=== PATIENT | female | born 1985 | race African-American/Black ===

== ENCOUNTER 2017-05-27 17:58 | Emergency (ER) ==
[2017-05-27 19:02] LABS: Hemoglobin 7.5 g/dL (12.0-16.0); Mean Corpuscular HGB CONC 35.9 g/dL (32.0-36.0); Mean Corpuscular Hemoglobin 31.6 pg (27.0-31.0); Mean Corpuscular Volume 87.9 fl (81.0-99.0); Mean Platelet Volume 8.8 fL (7.4-10.4); Platelet Count 237 thou/uL (130-400); RBC Distribution Width 22.6 % (11.5-14.5); Red Blood Cell (RBC) Count 2.36 mill/uL (4.20-5.40); White Blood Cell (WBC) Count 14.3 thou/uL (4.8-10.8)
[2017-05-27 19:18] LABS: ALT (SGPT) 30 U/L (8-55); AST (SGOT) 91 U/L (5-34); Albumin 3.5 g/dL (3.5-5.0); Alkaline Phosphatase 94 U/L (40-150); Anion Gap 10 mmol/L (10-20); BUN (Urea Nitrogen) 8 mg/dL (7.0-18.7); Calc. Creatinine Clearance 0 mL/min (70-130); Calcium 8.6 mg/dL (7.8-10.44); Carbon Dioxide 25 mmol/L (22-29); Chloride 109 mmol/L (98-107); Estimated GFR-MDRD Greater than 90; Globulin 2.8 g/dL (2.4-3.5); Glucose 100 mg/dL (70-105); Potassium 3.1 mmol/L (3.5-5.1); Protein, Total 6.3 g/dL (6.0-8.3); Sodium 141 mmol/L (136-145)
[2017-05-27 19:26] LABS: Anisocytosis SLIGHT = 6-15 cells (100X) (0-5/hpf); Lymphocytes 35 % (21-51); MDiff Complete? YES; Monocytes 3 % (0-10); Neutrophil 62 % (42-75); Nucleated RBC 8 % (0); PLT Morphology Comment Appears Adequate; Polychromasia SLIGHT = 2-3 cells (100X) (0-2/hpf); Sickle Cells SLIGHT = 1-5 cells (100X) (None Seen)
--- NOTE | 2017-05-27 20:20 | RAD ---
PA AND LATERAL CHEST X-RAY 05/27/17 HISTORY: Chest pain. History of sickle cell disease. FINDINGS: A right internal jugular vein Mediport catheter is noted in place. The cardiac silhouette is enlarged . There are interstitial densities at the right lung base with patchy parenchymal changes in the patricio on of the left lower lobe and lingula which may be related to pneumonia. Pulmonary vasculature is wit hin normal limits. Osseous structures appear intact. IMPRESSION: 1. Interstitial densities at the right lung base with patchy and parenchymal changes in the patricio on of the lingula and left middle lobe which may be related to infectious process/pneumonia. Follow u p to resolution is recommended. 2. Cardiomegaly. POS: [facility]
== END 2017-05-27 19:22 | disposition left against medical advice (07) ==
LOC: ERS 17:58
DX: D57.00 Hb-SS disease with crisis, unspecified (principal); F31.9 Bipolar disorder, unspecified; Z79.899 Other long term (current) drug therapy
CPT/HCPCS: 71046; 80053; 85025; 85046

== ENCOUNTER 2017-05-28 03:58 | Inpatient (IN) | payer MEDICARE, MEDICAID ==
[2017-05-28] MEDS ORDERED: HYDROMORPHONE SLOW IVP SCH (05:15)
[2017-05-28] MEDS ORDERED: SODIUM CHLORIDE 0.9% SLOW IVP SCH (05:15)
[2017-05-28 05:35] LABS: Acetaminophen Less than 6.0 mcg/mL (10.0-30.0); Alcohol Less than 10 mg/dL (Less than 10); CK (CPK) 41 U/L (29-168); Salicylate Less than 8.0 mg/dL (15.0-30.0)
[2017-05-28 05:40] LABS: BHCG - Serum Negative (NEGATIVE); CKMB 0.5 ng/mL (0-6.6); Pregs Control Background? CLEAR/WHITE (CLR/WHITE); Pregs Control Bar Appear? YES (CONTROL BAR); Troponin I 0.061 ng/mL (< 0.028)
[2017-05-28] MEDS ORDERED: Clopidogrel Bisulfate 75 MG TAB ONE (06:18)
[2017-05-28] MEDS ORDERED: Guaifenesin DM 100-10/5 ML UDCUP PO PRN (06:19)
[2017-05-28] MEDS ORDERED: HYDROcodone/Acetaminophen 7.5/325 mg Tablet PO PRN (06:19)
[2017-05-28] MEDS ORDERED: Ondansetron HCl/PF 4 MG/2 ML Vial IVP PRN (06:19)
[2017-05-28] MEDS ORDERED: HYDROcodone/Acetaminophen 10/325 mg Tablet PO PRN (06:19)
[2017-05-28 06:39] LABS: Bilirubin Small (Negative); Blood, Urine Large (Negative); Clarity CLOUDY (Clear); Glucose, Urine (Dipstick) Negative (Negative); Leukocyte Negative (Negative); Nitrite Negative (Negative); Protein, Urine (Dipstick) 300 mg/dL (Neg-Trace); Specific Gravity, Urine 1.013 (1.002-1.036); pH, Urine 6.5 (5.0-9.0)
[2017-05-28 06:42] LABS: Bacteria/HPF 1+ HPF (None Seen); Hyaline Casts/LPF 0-3 HYALINE CAST LPF (0-3 Hyaline)
[2017-05-28 06:48] LABS: Yeast-AUWi Flag 28.4 (0-25.0)
[2017-05-28 06:53] LABS: Amphetamine Not Detected (NotDetected); Barbiturates Screen Not Detected (NotDetected); Benzodiazepine Screen Not Detected (NotDetected); Cocaine Metabolite Screen Not Detected (NotDetected); Medtox Control Line Valid? VALID (VALID); Medtox Reader # READER 4; Methadone Not Detected (NotDetected); Methamphetamine Not Detected (NotDetected); Opiate Screen Not Detected (NotDetected); Oxycodone Screen Not Detected (NotDetected); Phencyclidine (PCP) Not Detected (NotDetected); THC/Cannabinoid Screen Not Detected (NotDetected); Tricyclic Screen Not Detected (NotDetected)
[2017-05-28 07:05] LABS: RBC/HPF 0-3 HPF (0-3); Renal Epithelial 0-3 HPF (0-3); Transitional Epithelial 0-3 HPF (0-3); Yeast-All Forms None Seen HPF (None Seen)
--- NOTE | 2017-05-28 08:31 | HP ---
REASON FOR ADMISSION: Sickle cell crisis, likely chest syndrome. HISTORY OF PRESENT ILLNESS: Patient gives history of having retrosternal chest pain and all her joints aching. This started yesterday afternoon and has been progressively getting worse. The patient has known history of sickle cell anemia and her last crisis was 2 months back when she got hospitalized in [place]. She lives in [place]. She has some dry cough, but no expectoration. No complaints of fever, urinary urgency or frequency. The patient normally takes [place] at home and folic acid. PAST MEDICAL AND SURGICAL HISTORY: History of sickle cell anemia, stroke with left hemiparesis once at 9 years of age and another stroke at 17 years of age. Patient has left upper extremity flexion contractures but is able to move. She can mobilize her left lower extremity, cholecystectomy, has a Port-A-Cath. CURRENT MEDICATIONS: Folic acid 1 mg daily and [place] p.r.n. for pain. ALLERGIES: The patient is allergic to DEMEROL, FENTANYL, MORPHINE, KETOROLAC, TORADOL, and TRAMADOL. PERSONAL HISTORY: Does not abuse alcohol or drugs. No history of smoking. She lives with her father. FAMILY HISTORY: She has 2 children, one is 7 years and another child is 10 years, both have sickle cell disease. Both parents had sickle cell trait. Mother at the age of 42 years. She has had cancer of the breast and cervical cancer. Father is living and has diabetes, hypertension, and sickle cell trait. REVIEW OF SYSTEMS: The following complete review of systems was negative, unless otherwise mentioned in the HPI or below: Constitutional: Weight loss or gain, ability to conduct usual activities. Skin: Rash, itching. Eyes: Double vision, pain. ENT/Mouth: Nose bleeding, neck stiffness, pain, tenderness. Cardiovascular: Palpitations, dyspnea on exertion, orthopnea. Respiratory: Shortness of breath, wheezing, cough, hemoptysis, fever or night sweats. Gastrointestinal: Poor appetite, abdominal pain, heartburn, nausea, vomiting, constipation, or diarrhea. Genitourinary: Urgency, frequency, dysuria, nocturia. Musculoskeletal: Pain, swelling. Neurologic/Psychiatric: Anxiety, depression. Allergy/Immunologic: Skin rash, bleeding tendency. PHYSICAL EXAMINATION: GENERAL: The patient is a 31-year-old female who is currently not in any acute distress. VITAL SIGNS: Blood pressure 142/90, pulse 70 per minute, respiratory rate is 18 per minute, temperature 99 degrees Fahrenheit, saturating 94% on room air. NECK: Supple, no elevated JVD. EYES: Extraocular muscles intact. Pupils are reacting to light. ORAL CAVITY: Mucous membranes are dry. No exudates or congestion. CARDIOVASCULAR SYSTEM: S1, S2 heard. Regular rhythm. RESPIRATORY SYSTEM: Air entry 1+ bilaterally. No rales or rhonchi. ABDOMEN: Soft, bowel sounds heard. No tenderness, rigidity or guarding. EXTREMITIES: No peripheral edema or calf tenderness. VASCULAR SYSTEM: Peripheral pulses 1+ bilateral, no ischemic ulcerations or gangrene. CENTRAL NERVOUS SYSTEM: No gross focal deficits noted. Patient is alert, awake , and oriented well. PSYCHIATRIC SYSTEM: Patient's mood is euthymic. No hallucinations or delusions. LABORATORY DATA AND IMAGING DATA: White count of 14 and, hemoglobin and hematocrit 7.5 and 20, MCV is 87, platelet count 237. Has a retic count of 21. D-dimer is 2.19, potassium 3.1, BUN 8, creatinine 0.4, total bilirubin 11, AST 91, ALT 30, alkaline phosphatase 94, troponin is 0.06, CK-MB 0.5. Serum test is negative. Albumin is 3.5. Plasma alcohol less than 10. EKG done shows normal sinus rhythm at 70 beats per minute. Patient appears to have LVH strain pattern with T inversions seen in all leads. CLINICAL IMPRESSION AND PLAN: Patient will be admitted to telemetry for her sickle cell crisis with possible acute chest syndrome. She will be on Dilaudid in view of her allergies to DEMEROL, MORPHINE, TORADOL, and TRAMADOL. I have spoken to anesthesiologist service control operator for Dilaudid administration. She will be on aspirin full dose, Lovenox 40 mg for deep venous thrombosis prophylaxis and normal saline at 100 mL per hour. One more liter of bolus will be given and she will also be on nitro paste half inch q.8 hourly. We will consult Dr. Mejia who is service control operator for Cardiology in view of indeterminate cardiac enzymes along with patient's prior history of CVA and likely current chest syndrome. Echo with 2D Doppler for LV function will be obtained. ER has ordered CT angio chest and we will await the results of the same. We will trend her troponin too. The patient does not appear to have any infection and her elevated white count is due to severe margination and dehydration. MTDD
--- NOTE | 2017-05-28 10:18 | PDOC.PN ---
- Subjective Encounter Start Date: 05/28/17 Encounter Start Time: 09:30 c/o pain.. Alert, very angry. - Objective Resuscitation Status: Resuscitation Status FULL:Full Resuscitation Vital Signs & Weight: Vital Signs (12 hours) Temp Pulse Resp BP Pulse Ox 05/28/17 09:18 99.1 F 79 20 133/86 89 L 05/28/17 09:00 99.1 F 79 18 133/86 88 L Weight Weight 166 lb Phys Exam - Physical Examination HEENT: sclera anicteric Neck: no JVD Respiratory: clear to auscultation bilateral Cardiovascular: RRR Gastrointestinal: soft Musculoskeletal: no edema Psychiatric: A&O x 3 Dx/Plan (1) Sickle cell crisis Code(s): D57.00 - HB-SS DISEASE WITH CRISIS, UNSPECIFIED Status: Acute (2) Elevated troponin I level Code(s): R74.8 - ABNORMAL LEVELS OF OTHER SERUM ENZYMES Status: Acute (3) Elevated d-dimer Code(s): R79.89 - OTHER SPECIFIED ABNORMAL FINDINGS OF BLOOD CHEMISTRY Status : Acute (4) History of CVA (cerebrovascular accident) Code(s): Z86.73 - PRSNL HX OF TIA (TIA), AND CEREB INFRC W/O RESID DEFICITS Status: Acute - Plan Cardiology consulted in view of elevated troponin. -: f/u ct angiogram. -: Continue hydration, narcotics. -: check cbc, LDH * .
[2017-05-28] MEDS: Famotidine 20 MG TAB PO SCH ×2 (10:22→21:33)
[2017-05-28] MEDS: Metoprolol Tartrate 25 MG TAB PO SCH ×2 (10:22→21:33)
[2017-05-28] MEDS: Docusate 100 MG CAP PO SCH ×2 (10:22→21:31)
[2017-05-28] MEDS: Aspirin 325 MG TAB PO SCH (10:23)
[2017-05-28] MEDS: Enoxaparin Sodium 40 MG/0.4 ML SYRINGE SC SCH (10:24)
--- NOTE | 2017-05-28 10:25 | PDOC.EVN ---
Event Note - Event Note Event Note: Hold IV fluid in view of possible CHF on chest x-ray.
[2017-05-28] MEDS ORDERED: Zolpidem Tartrate 5 MG TAB PO PRN (10:42)
[2017-05-28] MEDS ORDERED: Promethazine HCl 25 MG/ML VIAL IM PRN (10:42)
[2017-05-28] MEDS ORDERED: Naloxone HCl 0.4 mg/ml Vial IV PRN (10:42)
[2017-05-28] MEDS ORDERED: diphenhydrAMINE 50 MG/ML VIAL IM PRN (10:42)
[2017-05-28] MEDS ORDERED: diphenhydrAMINE 25 MG CAP PO PRN (10:42)
[2017-05-28] MEDS ORDERED: Communication Order-Pharmacy FS SCH (10:45)
--- NOTE | 2017-05-28 10:55 | ULT ---
DOPPLER VENOUS ULTRASOUND OF BOTH LOWER EXTREMITIES: INDICATION: History of pneumonia with elevated D-dimer. TECHNIQUE: Zayas scale, color Doppler, and vascular duplex with spectral analysis was performed of the deep venou s structures of both lower extremities. The common femoral vein, superficial femoral vein, popliteal vein, posterior tibial vein, proximal greater saphenous, and proximal profunda veins were assessed bi laterally. FINDINGS: There is normal compression, flow, and augmentation within both lower extremities. IMPRESSION: No evidence of deep vein thrombosis within both lower extremities. POS: [facility]
[2017-05-28 11:13] LABS: Band 2 % (5-11); Eosinophils 2 % (0-10); Hemoglobin 7.5 g/dL (12.0-16.0); Lymphocytes 34 % (21-51); MDiff Complete? YES; Mean Corpuscular HGB CONC 35.7 g/dL (32.0-36.0); Mean Corpuscular Hemoglobin 32.3 pg (27.0-31.0); Mean Corpuscular Volume 90.3 fl (81.0-99.0); Mean Platelet Volume 8.8 fL (7.4-10.4); Monocytes 9 % (0-10); Neutrophil 53 % (42-75); Nucleated RBC 49 % (0); Platelet Count 240 thou/uL (130-400); Polychromasia MODERATE = 3-4 cells (100X) (0-2/hpf); Red Blood Cell (RBC) Count 2.32 mill/uL (4.20-5.40); Sickle Cells MODERATE= 6-15 cells (100X) (None Seen); Target Cells SLIGHT = 2-5 cells (100X) (0-1/hpf); White Blood Cell (WBC) Count 14.2 thou/uL (4.8-10.8)
[2017-05-28 11:17] LABS: Troponin I 0.066 ng/mL (< 0.028)
[2017-05-28] MEDS: HYDROmorphone 10 mg/100 ml CADD IVPB PRN (12:11)
--- NOTE | 2017-05-28 13:14 | CT ---
CT OF THE THORAX UTILIZING IV CONTRAST AND PE PROTOCOL AND 3D REFORMATTED IMAGING: INDICATION: Chest pain with dry cough. COMPARISON: None. FINDINGS: There is moderate cardiomegaly. No central or segmental pulmonary embolus is evident. There is a small right pleural effusion. There is bibasilar subsegmental atelectasis. No confluent airspace opacity is evident. There is some patchy peripheral airspace opacity within the anterior as pect of the left upper lobe and right middle lobe. No definite enlarged lymph nodes are evident. Vi sualized upper abdomen demonstrates cholecystectomy clips. No definite acute osseous abnormality is evident. There is a right chest wall port in place. IMPRESSION: 1. No central or segmental pulmonary embolus. 2. Moderate cardiomegaly. 3. Small left pleural effusion. 4. Bibasilar atelectasis. 5. Patchy areas of peripheral airspace opacity right middle lobe and left upper lobe may be related to areas of subsegmental volume loss; however, focal pneumonitis of infectious or inflammatory etiolo gy cannot be entirely excluded. POS: [facility]
[2017-05-28 13:17] LABS: Troponin I 0.071 ng/mL (< 0.028)
[2017-05-28] MEDS ORDERED: ISOVUE-370 76%-LOCM 1 ML ONE (14:40)
[2017-05-28] MEDS: Sodium Chloride 0.9% 1,000 ML IV SCH ×2 (14:41→20:18)
[2017-05-28] MEDS: Nitroglycerin 2% Ointment 1 INCH/1 GM Packet TOP SCH ×2 (14:42→21:32)
--- NOTE | 2017-05-28 16:21 | CON ---
DATE OF ADMISSION: 05/28/2017 DATE OF CONSULTATION: 05/28/2017 INDICATION FOR CONSULTATION: This is a 31-year-old female with chest pain. HISTORY OF PRESENT ILLNESS: This is a very unfortunate 31-year-old female with a long history of sic kle cell disease, has had multiple episodes of crisis. She takes [place] at home. She has had CVAs in the past at age 9 and 17 with left hemiparesis. However, has been able to two children. She started having some pain a couple days ago, which started in all of her joints, it radiated to the ne ck area then to her chest area. She said she was hurting all over. Her medication is no longer work ing. She presented to the emergency room. We were asked to see her because she had some abnormal EK G changes and slight increase in cardiac enzymes, which are still indeterminate, the MB was 0.5 with a troponin I of 0.61, which is increased up to 0.071, still not compatible with myocardial infarction . Her EKG did show diffuse T-wave changes, which may be associated with some ischemia, associated wi th her sickle cell disease. She has suffered CVAs in the past as noted above at age 9 and 17. She d enied any other significant problems since being in the emergency room and being admitted to the [facility]. She has been started on Dilaudid and she no longer has any pain and feels very comfortable at thi s time. PAST MEDICAL HISTORY: Significant for CVAs. She has sickle cell disease with chronic anemia. She h as a cholecystectomy. She has had a Port-A-Cath placed. FAMILY HISTORY: Both her parents have sickle cell trait. She has 2 children, both which of sickle c ell disease. SOCIAL HISTORY: She has no alcohol or tobacco abuse. She lives with her mother. She has 2 children who are alive, but has sickle cell disease. ALLERGIES: She is allergic to FENTANYL, KETOROLAC, MEPERIDINE, MORPHINE, and TRAMADOL. MEDICATIONS AT HOME: Included folic acid and [place]. At this time, she has been placed on Dilaudid a nd is on a pump. She has also been placed on heparin as well as Pepcid, metoprolol 12.5 mg b.i.d., n itroglycerin as needed. No other p.r.n. medications. REVIEW OF SYSTEMS: Please refer to notes already dictated, but 12-point review of systems unremarkab le except what was noted in the history of present illness. PHYSICAL EXAMINATION: GENERAL: Reveals a young -[place] female, who is alert. VITAL SIGNS: Her blood pressure is 132/86. She is afebrile, heart rate 79 and regular, O2 saturatio ns are 89 to 93%, respiratory rate was 20. HEENT: Shows head to be normocephalic, atraumatic. Carotid pulses are present. There were no bruit s. There is no JVD. The thyroid did not appear to be enlarged. CHEST: Clear. I did not hear any rales, rhonchi, or wheezing. CARDIOVASCULAR: Exam reveals a regular rate and rhythm at this time. Normal S1, S2. There were no S3, S4 noted. There are no significant murmurs, heaves, thrills, bruits or rubs. ABDOMEN: Soft and nontender. Positive bowel sounds. EXTREMITIES: Show no clubbing or cyanosis. She does have left hemiparesis. Pedal pulses are presen t. SKIN: Warm and dry. NEUROLOGIC: Obviously, the patient has suffered a CVA in the past with some left hemiparesis. LABORATORY DATA: Shows hemoglobin of 7.5, hematocrit of 20.7, WBC of 14.3, potassium is 3.1 with a c reatinine 0.46, total bilirubin is 7.0. IMAGING: EKG shows a normal sinus rhythm with T-wave inversions, which are rather diffuse involving II, III, AVF and V3 through V6. These are symmetrical T-wave inversions, which may be associated wit h some type of neurologic problem or may be due to the ischemia associated with her sickle cell disea se. IMPRESSION: There is sickle cell crisis with pain all over and chest discomfort with abnormal EKG. This is not necessarily indicate ischemia at this time or myocardial infarction, but continue to foll ow very carefully. We will try to find old EKG for comparison. She will need IV fluids as well as I would agree with the nitroglycerin at this time and also Lovenox, if she is able to tolerate the nit roglycerin as well as the Lovenox without any episodes of bleeding. We would be more than happy to f rodricklow her with you, but at this time, I am not convinced this is cardiac problems, but we will certai nly follow her. She may need to have an echocardiogram for evaluation of left ventricular systolic f unction. When she is stable, she certainly could undergo a stress test, if so indicated. We would b e more than happy to continue to follow the patient with you. At this time, she appears to be stable from a cardiac standpoint. We will repeat the EKG.
[2017-05-28] MEDS: Acetaminophen 325 MG TAB PO PRN (23:16)
[2017-05-28] MEDS: Ondansetron HCl/PF 4 MG/2 ML Vial IVP PRN (23:23)
[2017-05-29] MEDS: Nitroglycerin 2% Ointment 1 INCH/1 GM Packet TOP SCH ×3 (05:07→21:15)
[2017-05-29] MEDS: Sodium Chloride 0.9% 1,000 ML IV SCH ×2 (05:10→22:57)
[2017-05-29 05:52] LABS: Anisocytosis MODERATE=16-30 cells (100X) (0-5/hpf); Eosinophils 4 % (0-10); Hemoglobin 7.3 g/dL (12.0-16.0); Lymphocytes 32 % (21-51); MDiff Complete? YES; Mean Corpuscular HGB CONC 35.3 g/dL (32.0-36.0); Mean Corpuscular Hemoglobin 31.5 pg (27.0-31.0); Mean Corpuscular Volume 89.2 fl (81.0-99.0); Mean Platelet Volume 8.2 fL (7.4-10.4); Monocytes 11 % (0-10); Neutrophil 53 % (42-75); Nucleated RBC 143 % (0); Platelet Count 232 thou/uL (130-400); Polychromasia MODERATE = 3-4 cells (100X) (0-2/hpf); RBC Distribution Width 28.3 % (11.5-14.5); Sickle Cells MODERATE= 6-15 cells (100X) (None Seen); Target Cells SLIGHT = 2-5 cells (100X) (0-1/hpf); White Blood Cell (WBC) Count 6.3 thou/uL (4.8-10.8)
[2017-05-29 06:19] LABS: Anion Gap 11 mmol/L (10-20); BUN (Urea Nitrogen) 6 mg/dL (7.0-18.7); Calc. Creatinine Clearance 200 mL/min (70-130); Calcium 8.3 mg/dL (7.8-10.44); Carbon Dioxide 23 mmol/L (22-29); Cardiac Risk 7.5 (Less than 4.5); Chloride 109 mmol/L (98-107); Cholesterol 120 mg/dl (< 200 Desired); Estimated GFR-MDRD Greater than 90; Glucose 110 mg/dL (70-105); HDL Cholesterol 16 mg/dL (>60 Neg Risk); LDL Cholesterol, Calculated 68 mg/dL; Sodium 140 mmol/L (136-145); Triglycerides 178 mg/dL (Less than 150)
[2017-05-29] MEDS: Aspirin 325 MG TAB PO SCH (08:38)
[2017-05-29] MEDS: Acetaminophen 325 MG TAB PO PRN ×2 (08:38→18:48)
[2017-05-29] MEDS: Famotidine 20 MG TAB PO SCH ×2 (08:39→20:52)
[2017-05-29] MEDS: Docusate 100 MG CAP PO SCH ×2 (08:39→20:52)
[2017-05-29] MEDS: Metoprolol Tartrate 25 MG TAB PO SCH ×2 (08:39→20:52)
[2017-05-29] MEDS: Enoxaparin Sodium 40 MG/0.4 ML SYRINGE SC SCH (08:39)
--- NOTE | 2017-05-29 14:54 | PDOC.PN ---
- Subjective Encounter Start Date: 05/29/17 Encounter Start Time: 11:00 Patient is seen today, Alerrt and oriented. C/o persistant Chest pain, With Echo being normal,. patient has severe Sickle Crisis, with Worsening Hb and increasing Retic count. - Objective Resuscitation Status: Resuscitation Status FULL:Full Resuscitation MAR Reviewed: Yes Vital Signs & Weight: Vital Signs (12 hours) Temp Pulse Resp BP Pulse Ox 05/29/17 12:00 98.5 F 86 18 127/88 93 L 05/29/17 08:00 98.3 F 89 16 133/88 93 L 05/29/17 07:50 98.3 F 89 16 81 L 05/29/17 04:00 98.4 F 95 16 142/95 H Weight Weight 166 lb I&O: 05/28/17 05/29/17 05/30/17 06:59 06:59 06:59 Intake Total 1279.2 Output Total 1 Balance 1278.2 Result Diagrams: 05/29/17 04:45 05/29/17 04:45 Radiology Reviewed by me: Yes Phys Exam - Physical Examination HEENT: PERRLA, moist MMs Neck: no nodes, no JVD Respiratory: no wheezing, no rales Cardiovascular: RRR, no significant murmur Gastrointestinal: soft, non-tender Musculoskeletal: no edema, pulses present Neurological: non-focal, normal sensation Lymphatic: no nodes Psychiatric: normal affect, A&O x 3 Skin: no rash, normal turgor Dx/Plan (1) Anemia, 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 (3) History of CVA (cerebrovascular accident) Code(s): Z86.73 - PRSNL HX OF TIA (TIA), AND CEREB INFRC W/O RESID DEFICITS Status: Acute Comment: Continue with Aspirin. (4) Sickle cell crisis Code(s): D57.00 - HB-SS DISEASE WITH CRISIS, UNSPECIFIED Status: Acute Comment: Will continue with IV hydration, IV narcotics, and PRBC transfusion, pt seees a hematology Dr. Alaniz. Will consult. - Plan cont current plan of care, plan discussed w/ family, PT/OT, respiratory therapy , incentive spirometry, DVT proph w/lovenox * . - Discharge Day Encounter end time: 11:35 Review of Systems - Review of Systems Eyes: negative: Pain, Vision Change, Conjunctivae Inflammation, Eyelid Inflammation, Redness, Other ENT: negative: Ear Pain, Ear Discharge, Nose Pain, Nose Discharge, Nose Congestion, Mouth Pain, Mouth Swelling, Throat Pain, Throat Swelling, Other Respiratory: Shortness of Breath, SOB with Excertion, Pleuritic Pain. negative : Cough, Dry, Hemoptysis, Sputum, Wheezing Cardiovascular: chest pain. negative: palpitations, orthopnea, paroxysmal nocturnal dyspnea, edema, light headedness, other Gastrointestinal: negative: Nausea, Vomiting, Abdominal Pain, Diarrhea, Constipation, Melena, Hematochezia, Other Genitourinary: negative: Dysuria, Frequency, Incontinence, Hematuria, Retention , Other Musculoskeletal: negative: Neck Pain, Shoulder Pain, Arm Pain, Back Pain, Hand Pain, Leg Pain, Foot Pain, Other Skin: negative: Rash, Lesions, Buddy, Bruising, Other - Medications/Allergies Allergies/Adverse Reactions: Allergies Allergy/AdvReac Type Severity Reaction Status Date / Time fentanyl Allergy Verified 05/28/17 05:11 ketorolac [From Toradol] Allergy Verified 05/28/17 05:11 meperidine [From Demerol] Allergy Verified 05/28/17 05:11 morphine Allergy Verified 05/28/17 05:11 tramadol Allergy Verified 05/28/17 05:11 Medications: Current Medications Acetaminophen (Tylenol) 650 mg PO Q4H PRN PRN Reason: Headache/Fever or Pain Last Admin: 05/29/17 08:38 Dose: 650 mg Aspirin (Aspirin) 325 mg PO DAILY [facility] Last Admin: 05/29/17 08:38 Dose: 325 mg Diphenhydramine HCl (Benadryl) 25 mg IVP Q3H PRN PRN Reason: Itching Diphenhydramine HCl (Benadryl) 25 mg PO Q3H PRN PRN Reason: Itching Diphenhydramine HCl (Benadryl) 25 mg IM Q3H PRN PRN Reason: Itching Docusate Sodium (Colace) 100 mg PO BID [facility] Last Admin: 05/29/17 08:39 Dose: Not Given Enoxaparin Sodium (Lovenox) 40 mg SC 0900 [facility] Last Admin: 05/29/17 08:39 Dose: Not Given Famotidine (Pepcid) 20 mg PO BID [facility] Last Admin: 05/29/17 08:39 Dose: Not Given Guaifenesin/Dextromethorphan (Robitussin Dm) 15 ml PO Q4H PRN PRN Reason: Cough Hydromorphone HCl (Dilaudid Cadd) 0 mg IVPB INF PRN PRN Reason: Pain Last Admin: 05/28/17 12:11 Dose: 10 mg Sodium Ch[place] (Normal Saline 0.9%) 1,000 mls @ 50 mls/hr IV .Q20H [facility] Last Admin: 05/29/17 05:10 Dose: 1,000 mls Metoprolol Tartrate (Lopressor) 12.5 mg PO BID [facility] Last Admin: 05/29/17 08:39 Dose: Not Given Naloxone HCl (Narcan) 0.2 mg IV Q5MIN PRN PRN Reason: Opiate Reversal Nitroglycerin (Nitro-Bid 2% Ointment) 0.5 inch TOP Q8HR [facility] Last Admin: 05/29/17 05:07 Dose: Not Given Ondansetron HCl (Zofran) 4 mg IVP Q6H PRN PRN Reason: Nausea/Vomiting Last Admin: 05/28/17 23:23 Dose: 4 mg Promethazine HCl (Phenergan) 12.5 mg IM Q4H PRN PRN Reason: Nausea/Vomiting Zolpidem Tartrate (Ambien) 5 mg PO HSPRN PRN PRN Reason: Insomnia
[2017-05-29] MEDS ORDERED: Albuterol Sulfate 2.5 mg/3 ml Neb NEB PRN (15:03)
[2017-05-29] MEDS: cefTRIAXone\\ROCEPHIN 2 GM in Sodium Chloride 0.9% 100 ML IVPB SCH (16:03)
[2017-05-29 16:11] LABS: Reticulocyte Count 26.1 % (0.5-1.5)
[2017-05-29] MEDS: HYDROmorphone 10 mg/100 ml CADD IVPB PRN (16:23)
--- NOTE | 2017-05-29 20:17 | CON ---
DATE OF CONSULTATION: 05/29/2017 REASON FOR CONSULTATION: Sickle cell crisis. HISTORY OF PRESENT ILLNESS: Ms. Hedrick is a 31-year-old -[place]rit[place] female with medical history of sickle cell disease who presented to the emergency room here on 05/28/2017 with chest and joint pain. She states it started the day prior to arrival and has gotten worse. She lives in [place] and was here visiting her boyfriend. She has a history of sickle cell crisis; her last was 2 months ago where she was admitted to the [place]. She was transfused 2 units of packed RBCs during that admission. She states her trigger is generally a change in the weather. She denies any upper respiratory symptoms. No recent fever or urinary problems. She is not on hydroxyurea as she states she is allergic to it. She last saw her director service on 05/12/17. Since arrival, she has been placed on IV fluids, oxygen, and DVT prophylaxis. She had a chest CT angio which showed no PE. It showed patchy areas of peripheral airspace in the right middle lobe and left upper lobe which could be related to subsegmental volume loss, pneumonitis or pneumonia. She has been started on antibiotics. She has also been started on a Dilaudid [employer]. Cardiology was consulted and she had an abnormal EKG on arrival. We were asked to see the patient for our recommendations. PAST MEDICAL HISTORY: 1. Sickle cell anemia. 2. Stroke with left hemiparesis at the age of 9 and 17. 3. Left upper extremity contractures. PAST SURGICAL HISTORY: 1. Cholecystectomy. 2. MediPort placement. ALLERGIES: DEMEROL, FENTANYL, MORPHINE, TORADOL, and TRAMADOL. HOME MEDICATIONS: Folic acid 1 mg daily, [place] p.r.n. for pain. FAMILY HISTORY: Patient has 2 children, ages 7 and 10, both with sickle cell disease. Both parents have sickle cell trait. Her mother at the age of 42. Father is alive. Her mother has a history of breast and cervical cancer. SOCIAL HISTORY: Single, lives with her father. No alcohol, tobacco or illicit drug use. REVIEW OF SYSTEMS: Constitutional: No fever, chills, night sweats, no recent weight loss or gain. Eyes: No blurred or double vision. ENT: No pain, hoarseness, sore throat, or dysphagia. Cardiovascular: Positive for chest pain , no palpitations or syncope. Respiratory: No shortness of breath, dyspnea on exertion or orthopnea. Gastrointestinal: No nausea, vomiting, diarrhea, constipation or abdominal pain. Genitourinary: No dysuria or hematuria. Musculoskeletal: Positive for joint and back pain. Skin: No rash or pruritus. Hematologic: No bleeding, bruising or clotting. Neurologic: Denies weakness, headache, numbness, tingling or seizure activity. Psychiatric : No anxiety or depression. PHYSICAL EXAMINATION: VITAL SIGNS: Temperature is 98.5, pulse is 86, respiratory rate 18, BP is 127/ 88. She is 93% on 3 liters. GENERAL: This is a well-developed, well-nourished female, in no acute distress. HEENT: Normocephalic, atraumatic. Pupils equal and reactive to light. NECK: Supple. HEART: Regular rate and rhythm. LUNGS: Clear. She has O2 per nasal cannula. EXTREMITIES: No clubbing, cyanosis or edema. SKIN: No rash. HEMATOLOGIC: No petechia or purpura. NEUROLOGICAL: The patient has a contracture of left upper extremity. PSYCHIATRIC: She is alert and oriented and appropriate. PERTINENT LABORATORY AND X-RAYS: Current WBCs are 6.3, hemoglobin 7.3, hematocrit 20.5, platelet count is 232,000. She has 53% neutrophils, 32% lymphocytes, 11% monocytes, retic count is 26.1, D-dimer is 2.19. Sodium is 140 , potassium 3.0, chloride 109, CO2 is 23, BUN is 6, creatinine 0.49, glucose is 110. Lactic acid is 1, calcium is 8.3. LDH is 865. Troponin is 0.071. Urine showed 1+ bacteria. Radiology per HPI. ASSESSMENT: 1. Sickle cell crisis. 2. Pneumonia. 3. Questionable acute chest syndrome. DISCUSSION: The patient has been started on O2, IV fluids, antibiotics, and pain control. She is receiving Lovenox for DVT prophylaxis. We will transfuse 1 unit of packed RBCs and add incentive spirometer. The patient is unable to take hydroxyurea due to a stated allergy. We will provide supportive care and follow her hospital course closely. Case has been discussed in detail with Dr. Anuel Altamirano. Thank you for the consult. ISAURA
[2017-05-29] MEDS: Ondansetron HCl/PF 4 MG/2 ML Vial IVP PRN (22:15)
[2017-05-29] MEDS ORDERED: Promethazine HCl 12.5 MG in Sodium Chloride 0.9% 100 ML IVPB SCH (22:45)
[2017-05-30] MEDS: Nitroglycerin 2% Ointment 1 INCH/1 GM Packet TOP SCH ×3 (05:53→22:17)
[2017-05-30] MEDS: Ondansetron HCl/PF 4 MG/2 ML Vial IVP PRN ×2 (06:26→22:22)
[2017-05-30] MEDS: Aspirin 325 MG TAB PO SCH (10:26)
[2017-05-30] MEDS: Famotidine 20 MG TAB PO SCH ×2 (10:28→22:17)
[2017-05-30] MEDS: Enoxaparin Sodium 40 MG/0.4 ML SYRINGE SC SCH (10:28)
[2017-05-30] MEDS: Docusate 100 MG CAP PO SCH ×2 (10:28→22:18)
[2017-05-30] MEDS: Metoprolol Tartrate 25 MG TAB PO SCH ×2 (10:29→22:16)
[2017-05-30 12:38] LABS: Anion Gap 9 mmol/L (10-20); BUN (Urea Nitrogen) Less than 4 mg/dL (7.0-18.7); Calc. Creatinine Clearance 192 mL/min (70-130); Calcium 8.4 mg/dL (7.8-10.44); Carbon Dioxide 25 mmol/L (22-29); Chloride 112 mmol/L (98-107); Estimated GFR-MDRD Greater than 90; Glucose 135 mg/dL (70-105); Sodium 143 mmol/L (136-145)
[2017-05-30 12:41] LABS: Potassium 2.9 mmol/L (3.5-5.1)
[2017-05-30 12:54] LABS: Anisocytosis MARKED = >30 cells (100X) (0-5/hpf); Band 4 % (5-11); Eosinophils 5 % (0-10); Hemoglobin 8.5 g/dL (12.0-16.0); Lymphocytes 35 % (21-51); MDiff Complete? YES; Mean Corpuscular HGB CONC 34.5 g/dL (32.0-36.0); Mean Corpuscular Hemoglobin 30.9 pg (27.0-31.0); Mean Corpuscular Volume 89.5 fl (81.0-99.0); Mean Platelet Volume 8.7 fL (7.4-10.4); Metamyelocyte 2 % (0-0); Monocytes 8 % (0-10); Neutrophil 45 % (42-75); Nucleated RBC 180 % (0); PLT Morphology Comment Appears Adequate; Platelet Count 250 thou/uL (130-400); Polychromasia MARKED = >4 cells (100X) (0-2/hpf); RBC Distribution Width 24.6 % (11.5-14.5); Red Blood Cell (RBC) Count 2.76 mill/uL (4.20-5.40); Sickle Cells MODERATE= 6-15 cells (100X) (None Seen); Target Cells SLIGHT = 2-5 cells (100X) (0-1/hpf)
[2017-05-30] MEDS: Promethazine HCl 25 MG/ML VIAL SLOW IVP PRN (13:48)
[2017-05-30] MEDS ORDERED: Potassium Chloride 20 MEQ TAB PO SCH (14:30)
[2017-05-30] MEDS ORDERED: Potassium Chloride 40 MEQ in Premix Bag 1 BAG IVPB ONE (16:30)
[2017-05-30] MEDS: HYDROmorphone 10 mg/100 ml CADD IVPB PRN (16:51)
[2017-05-30] MEDS: cefTRIAXone\\ROCEPHIN 2 GM in Sodium Chloride 0.9% 100 ML IVPB SCH ×2 (18:53→22:26)
[2017-05-30] MEDS: Acetaminophen 325 MG TAB PO PRN (22:22)
[2017-05-31] MEDS: Sodium Chloride 0.9% 1,000 ML IV SCH ×2 (05:15→21:18)
[2017-05-31] MEDS: Nitroglycerin 2% Ointment 1 INCH/1 GM Packet TOP SCH ×3 (07:17→21:22)
[2017-05-31] MEDS: Docusate 100 MG CAP PO SCH ×2 (08:47→21:21)
[2017-05-31] MEDS: Enoxaparin Sodium 40 MG/0.4 ML SYRINGE SC SCH (08:47)
[2017-05-31] MEDS: Metoprolol Tartrate 25 MG TAB PO SCH ×2 (08:48→21:06)
[2017-05-31] MEDS: Famotidine 20 MG TAB PO SCH ×2 (08:49→21:22)
[2017-05-31] MEDS: Aspirin 325 MG TAB PO SCH (08:50)
--- NOTE | 2017-05-31 09:14 | PDOC.PN ---
- Subjective Encounter Start Date: 05/30/17 Encounter Start Time: 11:30 Patient is seen today, C/o Swelling of her Extremitis and persistant Chest pain , She says she usually dosesnot have chest pains but only during Sickle Crisis. - Objective Resuscitation Status: Resuscitation Status FULL:Full Resuscitation MAR Reviewed: Yes Vital Signs & Weight: Vital Signs (12 hours) Temp Pulse Resp BP Pulse Ox 05/31/17 07:48 97.9 F 61 18 158/102 H 99 05/31/17 07:23 63 20 96 05/31/17 04:29 98.3 F 62 16 148/97 H 92 L 05/31/17 02:00 73 18 05/31/17 00:00 98.3 F 61 16 133/88 95 05/30/17 21:47 67 16 94 L Weight Weight 166 lb I&O: 05/30/17 05/31/17 06/01/17 06:59 06:59 06:59 Intake Total 1979 1956.2 Balance 1979 1956.2 Result Diagrams: 05/30/17 12:10 05/30/17 12:10 Phys Exam - Physical Examination HEENT: PERRLA, moist MMs Neck: no nodes, no JVD Respiratory: no wheezing, no rales Cardiovascular: RRR, no significant murmur Gastrointestinal: soft Musculoskeletal: pulses present, edema present Neurological: non-focal, normal sensation Lymphatic: no nodes Psychiatric: normal affect, A&O x 3 Dx/Plan (1) Anemia, hemolytic Code(s): 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 (2) Elevated troponin I level Code(s): R74.8 - ABNORMAL LEVELS OF OTHER SERUM ENZYMES Status: Acute Comment: Cardiology dseen pt, will follow recommedation, Echo was normal, Continue on Aspirin/ BB. (3) History of CVA (cerebrovascular accident) Code(s): Z86.73 - PRSNL HX OF TIA (TIA), AND CEREB INFRC W/O RESID DEFICITS Status: Acute Comment: Continue with Aspirin. (4) Sickle cell crisis Code(s): D57.00 - HB-SS DISEASE WITH CRISIS, UNSPECIFIED Status: Acute Comment: Will continue with IV hydration, IV narcotics, and PRBC transfusion, pt seees a hematology Dr. Alaniz. Consulted oncall Oncology, waiting for recommedations. - Plan cont current plan of care, continue antibiotics, PT/OT, social work instructor, respiratory therapy, incentive spirometry, DVT proph w/lovenox * . - Discharge Day Encounter end time: 12:05 Review of Systems - Review of Systems Constitutional: negative: fever, chills, sweats, weakness, malaise, other Eyes: negative: Pain, Vision Change, Conjunctivae Inflammation, Eyelid Inflammation, Redness, Other ENT: negative: Ear Pain, Ear Discharge, Nose Pain, Nose Discharge, Nose Congestion, Mouth Pain, Mouth Swelling, Throat Pain, Throat Swelling, Other Respiratory: negative: Cough, Dry, Shortness of Breath, Hemoptysis, SOB with Excertion, Pleuritic Pain, Sputum, Wheezing Cardiovascular: chest pain Gastrointestinal: Nausea. negative: Vomiting, Abdominal Pain, Diarrhea, Constipation, Melena, Hematochezia, Other Genitourinary: negative: Dysuria, Frequency, Incontinence, Hematuria, Retention , Other Musculoskeletal: negative: Neck Pain, Shoulder Pain, Arm Pain, Back Pain, Hand Pain, Leg Pain, Foot Pain, Other Skin: negative: Rash, Lesions, Buddy, Bruising, Other Neurological: negative: Weakness, Numbness, Incoordination, Change in Speech, Confusion, Seizures, Other - Medications/Allergies Allergies/Adverse Reactions: Allergies Allergy/AdvReac Type Severity Reaction Status Date / Time fentanyl Allergy Verified 05/28/17 05:11 ketorolac [From Toradol] Allergy Verified 05/28/17 05:11 meperidine [From Demerol] Allergy Verified 05/28/17 05:11 morphine Allergy Verified 05/28/17 05:11 tramadol Allergy Verified 05/28/17 05:11 Medications: Current Medications Acetaminophen (Tylenol) 650 mg PO Q4H PRN PRN Reason: Headache/Fever or Pain Last Admin: 05/30/17 22:22 Dose: 650 mg Albuterol Sulfate (Ventolin) 2.5 mg NEB Q2H PRN PRN Reason: Wheezing Albuterol/Ipratropium (Duoneb) 3 ml NEB [id number] [facility] Last Admin: 05/31/17 07:23 Dose: 3 ml Aspirin (Aspirin) 325 mg PO DAILY [facility] Last Admin: 05/31/17 08:50 Dose: Not Given Diphenhydramine HCl (Benadryl) 25 mg IVP Q3H PRN PRN Reason: Itching Diphenhydramine HCl (Benadryl) 25 mg PO Q3H PRN PRN Reason: Itching Diphenhydramine HCl (Benadryl) 25 mg IM Q3H PRN PRN Reason: Itching Docusate Sodium (Colace) 100 mg PO BID [facility] Last Admin: 05/31/17 08:47 Dose: Not Given Enoxaparin Sodium (Lovenox) 40 mg SC 0900 [facility] Last Admin: 05/31/17 08:47 Dose: Not Given Famotidine (Pepcid) 20 mg PO BID [facility] Last Admin: 05/31/17 08:49 Dose: Not Given Guaifenesin/Dextromethorphan (Robitussin Dm) 15 ml PO Q4H PRN PRN Reason: Cough Hydromorphone HCl (Dilaudid Cadd) 0 mg IVPB INF PRN PRN Reason: Pain Last Admin: 05/30/17 16:51 Dose: 10 mg Sodium Chloride (Normal Saline 0.9%) 1,000 mls @ 50 mls/hr IV .Q20H [facility] Last Admin: 05/31/17 05:15 Dose: 1,000 mls Levofloxacin 500 mg/ Device 100 mls @ 100 mls/hr IVPB Q24HR [facility] Last Admin: 05/30/17 16:31 Dose: 100 mls Ceftriaxone Sodium 2 gm/ (Sodium Chloride) 100 mls @ 200 mls/hr IVPB Q24HR@ 2300 [facility] Last Admin: 05/30/17 22:26 Dose: 100 mls Metoprolol Tartrate (Lopressor) 12.5 mg PO BID [facility] Last Admin: 05/31/17 08:48 Dose: 12.5 mg Naloxone HCl (Narcan) 0.2 mg IV Q5MIN PRN PRN Reason: Opiate Reversal Nitroglycerin (Nitro-Bid 2% Ointment) 0.5 inch TOP Q8HR [facility] Last Admin: 05/31/17 07:17 Dose: Not Given Ondansetron HCl (Zofran) 4 mg IVP Q6H PRN PRN Reason: Nausea/Vomiting Last Admin: 05/30/17 22:22 Dose: 4 mg Promethazine HCl (Phenergan) 6.25 mg SLOW IVP Q6H PRN PRN Reason: Nausea Last Admin: 05/30/17 13:48 Dose: 6.25 mg Sodium Chloride (Flush - Normal Saline) 10 ml IVF Q12HR [facility] Last Admin: 05/31/17 08:50 Dose: Not Given Sodium Chloride (Flush - Normal Saline) 10 ml IVF PRN PRN PRN Reason: Saline Flush Zolpidem Tartrate (Ambien) 5 mg PO HSPRN PRN PRN Reason: Insomnia
[2017-05-31] MEDS: Promethazine HCl 25 MG/ML VIAL SLOW IVP PRN ×2 (10:17→21:11)
[2017-05-31 11:11] LABS: Anion Gap 7 mmol/L (10-20); BUN (Urea Nitrogen) Less than 4 mg/dL (7.0-18.7); Calc. Creatinine Clearance 204 mL/min (70-130); Calcium 8.3 mg/dL (7.8-10.44); Carbon Dioxide 28 mmol/L (22-29); Chloride 111 mmol/L (98-107); Estimated GFR-MDRD Greater than 90; Glucose 100 mg/dL (70-105); Potassium 3.3 mmol/L (3.5-5.1); Sodium 143 mmol/L (136-145)
[2017-05-31 11:37] LABS: Eosinophils 4 % (0-10); Hemoglobin 8.2 g/dL (12.0-16.0); Lymphocytes 22 % (21-51); MDiff Complete? YES; Mean Corpuscular HGB CONC 35.1 g/dL (32.0-36.0); Mean Corpuscular Hemoglobin 32.2 pg (27.0-31.0); Mean Corpuscular Volume 91.8 fl (81.0-99.0); Mean Platelet Volume 8.8 fL (7.4-10.4); Monocytes 7 % (0-10); Neutrophil 67 % (42-75); Nucleated RBC 187 % (0); Platelet Count 230 thou/uL (130-400); Poikilocytosis MODERATE=16-30 cells (100X) (0-5/hpf); Polychromasia MODERATE = 3-4 cells (100X) (0-2/hpf); RBC Distribution Width 24.6 % (11.5-14.5); Red Blood Cell (RBC) Count 2.55 mill/uL (4.20-5.40); Sickle Cells MODERATE= 6-15 cells (100X) (None Seen); Target Cells SLIGHT = 2-5 cells (100X) (0-1/hpf); White Blood Cell (WBC) Count 4.5 thou/uL (4.8-10.8)
--- NOTE | 2017-05-31 12:50 | PDOC.PN ---
- Subjective Encounter Start Date: 05/31/17 Encounter Start Time: 09:00 Patient is seen today, alert and oriented. She continuos to have Chest pain, Explained she needs to be using IS regulary and Her Hb is stbale now even though she has active hemolyssi going one. Pt is seen by Oncology. - Objective Resuscitation Status: Resuscitation Status FULL:Full Resuscitation MAR Reviewed: Yes Vital Signs & Weight: Vital Signs (12 hours) Temp Pulse Resp BP Pulse Ox 05/31/17 10:45 61 20 94 L 05/31/17 08:00 97.9 F 61 18 99 05/31/17 07:48 97.9 F 61 18 158/102 H 99 05/31/17 07:23 63 20 96 05/31/17 04:29 98.3 F 62 16 148/97 H 92 L 05/31/17 02:00 73 18 Weight Weight 166 lb I&O: 05/30/17 05/31/17 06/01/17 06:59 06:59 06:59 Intake Total 1979 1956.2 1.2 Balance 1979 1956.2 1.2 Result Diagrams: 05/31/17 10:47 05/31/17 10:47 Radiology Reviewed by me: Yes Phys Exam - Physical Examination HEENT: PERRLA, moist MMs Neck: no nodes, no JVD Respiratory: no wheezing, no rales Cardiovascular: RRR, no significant murmur Gastrointestinal: soft, non-tender Musculoskeletal: pulses present, edema present Neurological: non-focal, normal sensation Lymphatic: no nodes Dx/Plan (1) Anemia, hemolytic Code(s): D58.9 - HEREDITARY HEMOLYTIC ANEMIA, UNSPECIFIED Status: Acute Qualifiers: Hemolytic anemia type: other hemoglobinopathy Qualified Code(s): D58.2 - Other hemoglobinopathies Comment: Primary Sickle Cell disease, pt has high Retic Count with signs of Worsening hemolysis,, Hb now is 8.2, consulted hematology, pt is Not On hydroxyurea due to allergy. Pt has Active hemolysis with Increased Nucleated RBC /High retic count. No evidence of icterus noted. (2) Elevated troponin I level Code(s): R74.8 - ABNORMAL LEVELS OF OTHER SERUM ENZYMES Status: Acute Comment: Cardiology dseen pt, will follow recommedation, Echo was normal, Continue on Aspirin/ BB. (3) History of CVA (cerebrovascular accident) Code(s): Z86.73 - PRSNL HX OF TIA (TIA), AND CEREB INFRC W/O RESID DEFICITS Status: Acute Comment: Continue with Aspirin. (4) Sickle cell crisis Code(s): D57.00 - HB-SS DISEASE WITH CRISIS, UNSPECIFIED Status: Acute Comment: Will continue with IV hydration, IV narcotics, and PRBC transfusion, pt seees a hematology Dr. Alaniz. Consulted oncall Oncology, follow recommedations. - Plan cont current plan of care, plan discussed w/ family, PT/OT, social sciences chair, respiratory therapy, incentive spirometry, DVT proph w/lovenox * . - Discharge Day Encounter end time: 09:35 Review of Systems - Review of Systems Constitutional: negative: fever, chills, sweats, weakness, malaise, other Eyes: negative: Pain, Vision Change, Conjunctivae Inflammation, Eyelid Inflammation, Redness, Other ENT: negative: Ear Pain, Ear Discharge, Nose Pain, Nose Discharge, Nose Congestion, Mouth Pain, Mouth Swelling, Throat Pain, Throat Swelling, Other Respiratory: negative: Cough, Dry, Shortness of Breath, Hemoptysis, SOB with Excertion, Pleuritic Pain, Sputum, Wheezing Cardiovascular: chest pain, edema Gastrointestinal: negative: Nausea, Vomiting, Abdominal Pain, Diarrhea, Constipation, Melena, Hematochezia, Other Genitourinary: negative: Dysuria, Frequency, Incontinence, Hematuria, Retention , Other Musculoskeletal: Arm Pain, Hand Pain Skin: negative: Rash, Lesions, Buddy, Bruising, Other Neurological: negative: Weakness, Numbness, Incoordination, Change in Speech, Confusion, Seizures, Other - Medications/Allergies Allergies/Adverse Reactions: Allergies Allergy/AdvReac Type Severity Reaction Status Date / Time fentanyl Allergy Verified 05/28/17 05:11 ketorolac [From Toradol] Allergy Verified 05/28/17 05:11 meperidine [From Demerol] Allergy Verified 05/28/17 05:11 morphine Allergy Verified 05/28/17 05:11 tramadol Allergy Verified 05/28/17 05:11 Medications: Current Medications Acetaminophen (Tylenol) 650 mg PO Q4H PRN PRN Reason: Headache/Fever or Pain Last Admin: 05/30/17 22:22 Dose: 650 mg Albuterol Sulfate (Ventolin) 2.5 mg NEB Q2H PRN PRN Reason: Wheezing Albuterol/Ipratropium (Duoneb) 3 ml NEB [id number] [facility] Last Admin: 05/31/17 10:45 Dose: 3 ml Aspirin (Aspirin) 325 mg PO DAILY [facility] Last Admin: 05/31/17 08:50 Dose: Not Given Diphenhydramine HCl (Benadryl) 25 mg IVP Q3H PRN PRN Reason: Itching Diphenhydramine HCl (Benadryl) 25 mg PO Q3H PRN PRN Reason: Itching Diphenhydramine HCl (Benadryl) 25 mg IM Q3H PRN PRN Reason: Itching Docusate Sodium (Colace) 100 mg PO BID [facility] Last Admin: 05/31/17 08:47 Dose: Not Given Enoxaparin Sodium (Lovenox) 40 mg SC 0900 [facility] Last Admin: 05/31/17 08:47 Dose: Not Given Famotidine (Pepcid) 20 mg PO BID [facility] Last Admin: 05/31/17 08:49 Dose: Not Given Guaifenesin/Dextromethorphan (Robitussin Dm) 15 ml PO Q4H PRN PRN Reason: Cough Hydromorphone HCl (Dilaudid Cadd) 0 mg IVPB INF PRN PRN Reason: Pain Last Admin: 05/30/17 16:51 Dose: 10 mg Sodium Chloride (Normal Saline 0.9%) 1,000 mls @ 50 mls/hr IV .Q20H [facility] Last Admin: 05/31/17 05:15 Dose: 1,000 mls Ceftriaxone Sodium 2 gm/ (Sodium Chloride) 100 mls @ 200 mls/hr IVPB Q24HR@ 2300 [facility] Last Admin: 05/30/17 22:26 Dose: 100 mls Ipratropium [place] (Atrovent 0.06% Nasal Inhaler) 0 ml EA NARE BID [facility] Levofloxacin (Levaquin) 500 mg PO 1500 [facility] Metoprolol Tartrate (Lopressor) 12.5 mg PO BID [facility] Last Admin: 05/31/17 08:48 Dose: 12.5 mg Naloxone HCl (Narcan) 0.2 mg IV Q5MIN PRN PRN Reason: Opiate Reversal Nitroglycerin (Nitro-Bid 2% Ointment) 0.5 inch TOP Q8HR [facility] Last Admin: 05/31/17 07:17 Dose: Not Given Ondansetron HCl (Zofran) 4 mg IVP Q6H PRN PRN Reason: Nausea/Vomiting Last Admin: 05/30/17 22:22 Dose: 4 mg Oxymetazoline HCl (Oxymetazoline Hcl) 1 sprays NASAL BID [facility] Stop: 06/02/17 21:01 Promethazine HCl (Phenergan) 6.25 mg SLOW IVP Q6H PRN PRN Reason: Nausea Last Admin: 05/31/17 10:17 Dose: 6.25 mg Sodium Chloride (Flush - Normal Saline) 10 ml IVF Q12HR [facility] Last Admin: 05/31/17 08:50 Dose: Not Given Sodium Chloride (Flush - Normal Saline) 10 ml IVF PRN PRN PRN Reason: Saline Flush Zolpidem Tartrate (Ambien) 5 mg PO HSPRN PRN PRN Reason: Insomnia
[2017-05-31] MEDS: Ipratropium Bromide 0.06% Nasal Inhaler 15ml EA NARE SCH ×2 (14:07→21:13)
[2017-05-31] MEDS: Oxymetazoline HCl 0.05% ( 15 ML ) NASAL SCH ×2 (14:08→21:14)
[2017-05-31] MEDS: Acetaminophen 325 MG TAB PO PRN (16:50)
--- NOTE | 2017-05-31 18:59 | RAD ---
CHEST ONE VIEW 05/31/17 HISTORY: New onset chest pain. COMPARISON: Radiograph 05/27/17. FINDINGS: Worsening bilateral effusions. There are bilateral lower lobe air space opacities. Mild edema. Port c atheter tip inferior SVC. No pneumothorax. IMPRESSION: Worsening lower lobe air space opacities and effusions as well as moderate edema. POS: [facility]
[2017-05-31] MEDS: HYDROmorphone 10 mg/100 ml CADD IVPB PRN (19:55)
[2017-05-31] MEDS: cefTRIAXone\\ROCEPHIN 2 GM in Sodium Chloride 0.9% 100 ML IVPB SCH (21:18)
[2017-05-31] MEDS: diphenhydrAMINE 50 MG/ML VIAL IVP PRN (23:22)
[2017-06-01] MEDS: Nitroglycerin 2% Ointment 1 INCH/1 GM Packet TOP SCH ×3 (04:22→21:10)
--- NOTE | 2017-06-01 05:10 | PDOC.EVN ---
Event Note - Event Note Event Note: Pt still with significant epistaxis and would not let nurses put Afrin spray to put pressure. O2 sats running low as she refuses to wear nasal canula. Talked w pt and she continues to refuse. Discussed the risk of continued bleeding and hypoxia. Will try to put nasal rocket.check H/H and consult ENT for Hemolysis related epistaxis.will follow. discussed w Nursing
[2017-06-01] MEDS: Docusate 100 MG CAP PO SCH ×2 (08:11→21:09)
[2017-06-01] MEDS: Famotidine 20 MG TAB PO SCH ×2 (08:11→21:09)
[2017-06-01 08:26] LABS: Hemoglobin 8.4 g/dL (12.0-16.0)
[2017-06-01] MEDS: Metoprolol Tartrate 25 MG TAB PO SCH ×2 (09:08→21:09)
[2017-06-01] MEDS: Ipratropium Bromide 0.06% Nasal Inhaler 15ml EA NARE SCH ×2 (09:10→21:09)
[2017-06-01] MEDS: Oxymetazoline HCl 0.05% ( 15 ML ) NASAL SCH ×2 (09:10→21:08)
--- NOTE | 2017-06-01 10:18 | RAD ---
PORTABLE CHEST: History: Shortness of breath. Hypoxia. Assess for infiltrate. Comparison: Chest CT 05-28-17 FINDINGS/IMPRESSION: Increasing opacification in the lung base is noted consistent with increasing bilateral effusions and bibasilar atelectasis. There is cardiomegaly and mild vascular congestion which is more pronounced t sunny. POS: [facility]
[2017-06-01] MEDS: Sucralfate 1 GM TAB PO SCH ×3 (13:01→21:10)
--- NOTE | 2017-06-01 13:33 | ULT ---
LEFT LOWER EXTREMITY VENOUS DUPLEX EXAM: Deep veins of the left lower extremity evaluated with ultrasound, color Doppler, spectral analysis, a nd compression. HISTORY: Left lower extremity pain and edema. FINDINGS: Deep veins of left lower extremity show normal compression and blood flow. No evidence of DVT. IMPRESSION: No evidence of left lower extremity deep vein thrombosis. POS: [facility]
--- NOTE | 2017-06-01 13:58 | PDOC.PN ---
- Subjective Encounter Start Date: 06/01/17 Encounter Start Time: 08:00 Patient is seen today, alert and oriented. She had a Code green today, with pt havuing anxiety attack with Nose bleed, She is Reefusing all the medications, She pulled off her oxygen maskin frustration. She also removed Rocket put in her right nostril for holding bleeding/. - Objective Resuscitation Status: Resuscitation Status FULL:Full Resuscitation MAR Reviewed: Yes Vital Signs & Weight: Vital Signs (12 hours) Temp Pulse Pulse Pulse Resp BP BP 06/01/17 13:53 80 14 06/01/17 11:07 98.7 F 75 22 H 06/01/17 09:00 98.3 F 68 20 06/01/17 07:25 76 76 94/67 157/100 H 06/01/17 02:20 BP Pulse Ox Pulse Ox Pulse Ox 06/01/17 13:53 06/01/17 11:07 159/105 H 93 L 06/01/17 09:00 146/92 H 91 L 06/01/17 07:25 94 L 86 L 06/01/17 02:20 91 L Weight Weight 166 lb I&O: 05/31/17 06/01/17 06/02/17 06:59 06:59 06:59 Intake Total 1956.2010. Balance 1956. Result Diagrams: 06/01/17 07:53 05/31/17 10:47 Radiology Reviewed by me: Yes EKG Reviewed by me: Yes Phys Exam - Physical Examination HEENT: PERRLA, moist MMs, oral pharynx no lesions Right nostrol Bleeding noted, Neck: no nodes, no JVD Respiratory: no wheezing, no rales Cardiovascular: RRR, no significant murmur Gastrointestinal: soft, non-tender Musculoskeletal: no edema, pulses present Neurological: non-focal, normal sensation Lymphatic: no nodes Psychiatric: normal affect Skin: no rash, normal turgor, cap refill <2 seconds Dx/Plan (1) Anemia, hemolytic Code(s): D58.9 - HEREDITARY HEMOLYTIC ANEMIA, UNSPECIFIED Status: Acute Qualifiers: Hemolytic anemia type: other hemoglobinopathy Qualified Code(s): D58.2 - Other hemoglobinopathies Comment: Primary Sickle Cell disease, pt has high Retic Count with signs of Worsening hemolysis,, Hb now is 8.2, consulted hematology, pt is Not On hydroxyurea due to allergy. Pt has Active hemolysis with Increased Nucleated RBC /High retic count. No evidence of icterus noted. poor prognosis with persistant chest pain and High on narcotics with [employer] dilaudid. Will closley Monitor. (2) Elevated troponin I level Code(s): R74.8 - ABNORMAL LEVELS OF OTHER SERUM ENZYMES Status: Acute Comment: Cardiology dseen pt, will follow recommedation, Echo was normal, Continue on Aspirin/ BB. Will hold Asprin for persistant bleeding nostril. (3) History of CVA (cerebrovascular accident) Code(s): Z86.73 - PRSNL HX OF TIA (TIA), AND CEREB INFRC W/O RESID DEFICITS Status: Acute Comment: Hold Aspirin due to severe bleeding from Nostril, pt Dropping Hb. (4) Sickle cell crisis Code(s): D57.00 - HB-SS DISEASE WITH CRISIS, UNSPECIFIED Status: Acute Comment: Will continue with IV hydration, IV narcotics, and PRBC transfusion, pt seees a hematology Dr. Alaniz. Consulted oncall Oncology, follow recommedations. - Plan cont current plan of care, carrasco catheter, PT/OT, social worker psychiatric, respiratory therapy, incentive spirometry, DVT proph w/SCDs * . - Discharge Day Encounter end time: 08:35 Review of Systems - Review of Systems Eyes: negative: Pain, Vision Change, Conjunctivae Inflammation, Eyelid Inflammation, Redness, Other ENT: Nose Discharge, Nose Congestion, Other (bleeding Nostril) Respiratory: negative: Cough, Dry, Shortness of Breath, Hemoptysis, SOB with Excertion, Pleuritic Pain, Sputum, Wheezing Cardiovascular: chest pain, edema. negative: palpitations, orthopnea, paroxysmal nocturnal dyspnea, light headedness, other Gastrointestinal: Nausea, Vomiting. negative: Abdominal Pain, Diarrhea, Constipation, Melena, Hematochezia, Other Genitourinary: negative: Dysuria, Frequency, Incontinence, Hematuria, Retention , Other Musculoskeletal: negative: Neck Pain, Shoulder Pain, Arm Pain, Back Pain, Hand Pain, Leg Pain, Foot Pain, Other Skin: negative: Rash, Lesions, Buddy, Bruising, Other - Medications/Allergies Allergies/Adverse Reactions: Allergies Allergy/AdvReac Type Severity Reaction Status Date / Time fentanyl Allergy Verified 05/28/17 05:11 ketorolac [From Toradol] Allergy Verified 05/28/17 05:11 meperidine [From Demerol] Allergy Verified 05/28/17 05:11 morphine Allergy Verified 05/28/17 05:11 tramadol Allergy Verified 05/28/17 05:11 Medications: Current Medications Acetaminophen (Tylenol) 650 mg PO Q4H PRN PRN Reason: Headache/Fever or Pain Last Admin: 05/31/17 16:50 Dose: 650 mg Albuterol Sulfate (Ventolin) 2.5 mg NEB Q2H PRN PRN Reason: Wheezing Albuterol/Ipratropium (Duoneb) 3 ml NEB [id number] [facility] Last Admin: 06/01/17 13:53 Dose: 3 ml Diphenhydramine HCl (Benadryl) 25 mg IVP Q3H PRN PRN Reason: Itching Last Admin: 05/31/17 23:22 Dose: 25 mg Diphenhydramine HCl (Benadryl) 25 mg PO Q3H PRN PRN Reason: Itching Diphenhydramine HCl (Benadryl) 25 mg IM Q3H PRN PRN Reason: Itching Docusate Sodium (Colace) 100 mg PO BID [facility] Last Admin: 06/01/17 08:11 Dose: Not Given Famotidine (Pepcid) 20 mg PO BID [facility] Last Admin: 06/01/17 08:11 Dose: Not Given Guaifenesin/Dextromethorphan (Robitussin Dm) 15 ml PO Q4H PRN PRN Reason: Cough Hydromorphone HCl (Dilaudid Cadd) 0 mg IVPB INF PRN PRN Reason: Pain Last Admin: 05/31/17 19:55 Dose: 10 mg Sodium Chloride (Normal Saline 0.9%) 1,000 mls @ 50 mls/hr IV .Q20H [facility] Last Admin: 05/31/17 21:18 Dose: 1,000 mls Ceftriaxone Sodium 2 gm/ (Sodium Chloride) 100 mls @ 200 mls/hr IVPB Q24HR@ 2300 [facility] Last Admin: 05/31/17 21:18 Dose: 100 mls Ipratropium [place] (Atrovent 0.06% Nasal Inhaler) 0 ml EA NARE BID [facility] Last Admin: 06/01/17 09:10 Dose: Not Given Metoprolol Tartrate (Lopressor) 12.5 mg PO BID [facility] Last Admin: 06/01/17 09:08 Dose: Not Given Naloxone HCl (Narcan) 0.2 mg IV Q5MIN PRN PRN Reason: Opiate Reversal Nitroglycerin (Nitro-Bid 2% Ointment) 0.5 inch TOP Q8HR [facility] Last Admin: 06/01/17 13:54 Dose: Not Given Ondansetron HCl (Zofran) 4 mg IVP Q6H PRN PRN Reason: Nausea/Vomiting Last Admin: 05/30/17 22:22 Dose: 4 mg Oxymetazoline HCl (Oxymetazoline Hcl) 1 sprays NASAL BID [facility] Stop: 06/02/17 21:01 Last Admin: 06/01/17 09:10 Dose: Not Given Promethazine HCl (Phenergan) 6.25 mg SLOW IVP Q6H PRN PRN Reason: Nausea Last Admin: 05/31/17 21:11 Dose: 6.25 mg Sodium Chloride (Flush - Normal Saline) 10 ml IVF Q12HR [facility] Last Admin: 06/01/17 08:11 Dose: Not Given Sodium Chloride (Flush - Normal Saline) 10 ml IVF PRN PRN PRN Reason: Saline Flush Sucralfate (Carafate) 1 gm PO ACHS [facility] Last Admin: 06/01/17 13:01 Dose: Not Given Zolpidem Tartrate (Ambien) 5 mg PO HSPRN PRN PRN Reason: Insomnia
[2017-06-01 14:23] LABS: Hemoglobin 8.4 g/dL (12.0-16.0)
[2017-06-01] MEDS ORDERED: Oxymetazoline HCl 0.05% ( 15 ML ) NASAL PRN (14:42)
--- NOTE | 2017-06-01 17:26 | EKG ---
Test Reason : Blood Pressure : / mmHG Vent. Rate : 091 BPM Atrial Rate : 091 BPM P-R Int : 170 ms QRS Dur : 088 ms QT Int : 386 ms P-R-T Axes : 047 000 102 degrees QTc Int : 474 ms Normal sinus rhythm Possible Left atrial enlargement T wave abnormality, consider anterolateral ischemia Prolonged QT Abnormal ECG No previous ECGs available Confirmed by DR. Antonieta QUINTANA ([id number]) on 06/01/2017 5:26:17 PM Referred By: TALI Confirmed By:DR. Antonieta QUINTANA
--- NOTE | 2017-06-01 17:44 | EKG ---
Test Reason : Blood Pressure : / mmHG Vent. Rate : 062 BPM Atrial Rate : 062 BPM P-R Int : 178 ms QRS Dur : 088 ms QT Int : 464 ms P-R-T Axes : 048 -01 065 degrees QTc Int : 470 ms Normal sinus rhythm Possible Left atrial enlargement T wave abnormality, consider anterolateral ischemia Prolonged QT Abnormal ECG When compared with ECG of 29-MAY-2017 06:41, (Unconfirmed) No significant change was found Confirmed by DR. Antonieta QUINTANA ([id number]) on 06/01/2017 5:44:12 PM Referred By: SUNDAR Confirmed By:DR. Antonieta QUINTANA
[2017-06-01] MEDS: Sodium Chloride 0.9% 1,000 ML IV SCH (18:02)
[2017-06-01] MEDS: HYDROmorphone 10 mg/100 ml CADD IVPB PRN (18:29)
[2017-06-01] MEDS: cefTRIAXone\\ROCEPHIN 2 GM in Sodium Chloride 0.9% 100 ML IVPB SCH (22:03)
[2017-06-01] MEDS: Promethazine HCl 25 MG/ML VIAL SLOW IVP PRN (22:18)
[2017-06-02] MEDS: Nitroglycerin 2% Ointment 1 INCH/1 GM Packet TOP SCH ×3 (05:50→21:02)
[2017-06-02] MEDS: Promethazine HCl 6.25 MG in Sodium Chloride 0.9% 50 ML IVPB PRN ×2 (07:45→16:23)
[2017-06-02] MEDS: Sucralfate 1 GM TAB PO SCH ×4 (07:46→20:51)
[2017-06-02] MEDS: Famotidine 20 MG TAB PO SCH ×3 (07:46→20:42)
[2017-06-02] MEDS: Docusate 100 MG CAP PO SCH ×2 (07:46→20:51)
[2017-06-02] MEDS: Metoprolol Tartrate 25 MG TAB PO SCH ×2 (07:46→20:42)
[2017-06-02] MEDS: Ipratropium Bromide 0.06% Nasal Inhaler 15ml EA NARE SCH ×2 (07:53→20:51)
[2017-06-02] MEDS: Oxymetazoline HCl 0.05% ( 15 ML ) NASAL SCH ×2 (07:53→20:51)
[2017-06-02 08:31] LABS: Hemoglobin 7.7 g/dL (12.0-16.0); Mean Corpuscular HGB CONC 35.8 g/dL (32.0-36.0); Mean Corpuscular Hemoglobin 31.9 pg (27.0-31.0); Mean Corpuscular Volume 89.1 fl (81.0-99.0); Mean Platelet Volume 8.3 fL (7.4-10.4); Platelet Count 208 thou/uL (130-400); RBC Distribution Width 20.7 % (11.5-14.5); Red Blood Cell (RBC) Count 2.43 mill/uL (4.20-5.40)
[2017-06-02 08:41] LABS: ALT (SGPT) 29 U/L (8-55); AST (SGOT) 78 U/L (5-34); Albumin 3.3 g/dL (3.5-5.0); Alkaline Phosphatase 107 U/L (40-150); Anion Gap 11 mmol/L (10-20); BUN (Urea Nitrogen) 5 mg/dL (7.0-18.7); Bilirubin, Total 7.2 mg/dL (0.2-1.2); Calc. Creatinine Clearance 233 mL/min (70-130); Calcium 8.5 mg/dL (7.8-10.44); Carbon Dioxide 26 mmol/L (22-29); Chloride 106 mmol/L (98-107); Estimated GFR-MDRD Greater than 90; Glucose 122 mg/dL (70-105); Potassium 3.4 mmol/L (3.5-5.1); Protein, Total 6.3 g/dL (6.0-8.3); Sodium 140 mmol/L (136-145)
[2017-06-02 09:05] LABS: Anisocytosis MODERATE=16-30 cells (100X) (0-5/hpf); Band 1 % (5-11); Eosinophils 4 % (0-10); Hemoglobin C Crystals SLIGHT (None Seen); Lymphocytes 22 % (21-51); MDiff Complete? YES; Monocytes 5 % (0-10); Neutrophil 66 % (42-75); Nucleated RBC 37 % (0); Poikilocytosis MODERATE=16-30 cells (100X) (0-5/hpf); Polychromasia SLIGHT = 2-3 cells (100X) (0-2/hpf); Reactive Lymphocytes 2 % (0-10); Reflex for Review?? NO; Schistocytes MODERATE= 6-15 cells (100X) (0-1/hpf); Sickle Cells MODERATE= 6-15 cells (100X) (None Seen); Target Cells SLIGHT = 2-5 cells (100X) (0-1/hpf)
[2017-06-02] MEDS: Sodium Chloride 0.9% 1,000 ML IV SCH (13:25)
--- NOTE | 2017-06-02 14:14 | PDOC.PN ---
- Subjective Encounter Start Date: 06/02/17 Encounter Start Time: 11:00 Patient is seen today, alert and oriented and no other concern noted. She is Not in pain and no Bleeding noted. She is recoeveing blood transfusion. - Objective Resuscitation Status: Resuscitation Status FULL:Full Resuscitation MAR Reviewed: Yes Vital Signs & Weight: Vital Signs (12 hours) Temp Pulse Resp BP Pulse Ox 06/02/17 12:54 98.5 F 69 20 142/91 H 91 L 06/02/17 08:42 99.5 F 94 20 138/93 H 06/02/17 08:00 99.5 F 94 20 92 L 06/02/17 05:30 99.2 F 96 19 138/77 89 L Weight Weight 166 lb I&O: 06/01/17 06/02/17 06/03/17 06:59 06:59 06:59 Intake Total 2010.2 2520 240 Balance 2010.2 2520 240 Result Diagrams: 06/02/17 07:57 06/02/17 07:22 Radiology Reviewed by me: Yes Phys Exam - Physical Examination HEENT: PERRLA, moist MMs Neck: no nodes, no JVD, supple Respiratory: no wheezing, no rales Cardiovascular: RRR, no significant murmur Gastrointestinal: soft, non-tender Musculoskeletal: no edema, pulses present Neurological: non-focal, normal sensation Psychiatric: normal affect, A&O x 3 Dx/Plan (1) Anemia, hemolytic Code(s): D58.9 - HEREDITARY HEMOLYTIC ANEMIA, UNSPECIFIED Status: Acute Qualifiers: Hemolytic anemia type: other hemoglobinopathy Qualified Code(s): D58.2 - Other hemoglobinopathies Comment: Primary Sickle Cell disease, pt has high Retic Count with signs of Worsening hemolysis,, Hb now is 7.7, started 1 PRBC, consulted hematology, pt is Not On hydroxyurea due to allergy. Pt has Active hemolysis with Increased Nucleated RBC/High retic count. No evidence of icterus noted. poor prognosis with persistant chest pain and High on narcotics with PATENT COUNSEL dilaudid. Will closley Monitor. (2) Elevated troponin I level Code(s): R74.8 - ABNORMAL LEVELS OF OTHER SERUM ENZYMES Status: Acute Comment: Cardiology dseen pt, will follow recommedation, Echo was normal, Continue on Aspirin/ BB. Will hold Asprin for persistant bleeding nostril. (3) History of CVA (cerebrovascular accident) Code(s): Z86.73 - PRSNL HX OF TIA (TIA), AND CEREB INFRC W/O RESID DEFICITS Status: Acute Comment: Hold Aspirin due to severe bleeding from Nostril, pt Dropping Hb. (4) Sickle cell crisis Code(s): D57.00 - HB-SS DISEASE WITH CRISIS, UNSPECIFIED Status: Acute Comment: Will continue with IV hydration, IV narcotics, and PRBC transfusion, pt seees a hematology Dr. Alaniz. Consulted oncall Oncology, follow recommedations. (5) Atelectasis of both lungs Code(s): J98.11 - ATELECTASIS Status: Acute Comment: Patient is hypoxic from Atelectesis , and due to poor breathing, encouraged to use IS more often, pt is least Motivated and looks deprresed with her situation. Explained she need to be consistant on Breathing exercise. - Plan cont current plan of care, continue antibiotics, PT/OT, speech therapy, respiratory therapy, incentive spirometry, out of bed/ambulate * . - Discharge Day Encounter end time: 11:35 Review of Systems - Review of Systems Eyes: negative: Pain, Vision Change, Conjunctivae Inflammation, Eyelid Inflammation, Redness, Other ENT: negative: Ear Pain, Ear Discharge, Nose Pain, Nose Discharge, Nose Congestion, Mouth Pain, Mouth Swelling, Throat Pain, Throat Swelling, Other Respiratory: negative: Cough, Dry, Shortness of Breath, Hemoptysis, SOB with Excertion, Pleuritic Pain, Sputum, Wheezing Cardiovascular: negative: chest pain, palpitations, orthopnea, paroxysmal nocturnal dyspnea, edema, light headedness, other Gastrointestinal: negative: Nausea, Vomiting, Abdominal Pain, Diarrhea, Constipation, Melena, Hematochezia, Other Genitourinary: negative: Dysuria, Frequency, Incontinence, Hematuria, Retention , Other Musculoskeletal: negative: Neck Pain, Shoulder Pain, Arm Pain, Back Pain, Hand Pain, Leg Pain, Foot Pain, Other Neurological: negative: Weakness, Numbness, Incoordination, Change in Speech, Confusion, Seizures, Other - Medications/Allergies Allergies/Adverse Reactions: Allergies Allergy/AdvReac Type Severity Reaction Status Date / Time fentanyl Allergy Verified 05/28/17 05:11 ketorolac [From Toradol] Allergy Verified 05/28/17 05:11 meperidine [From Demerol] Allergy Verified 05/28/17 05:11 morphine Allergy Verified 05/28/17 05:11 tramadol Allergy Verified 05/28/17 05:11 Medications: Current Medications Acetaminophen (Tylenol) 650 mg PO Q4H PRN PRN Reason: Headache/Fever or Pain Last Admin: 05/31/17 16:50 Dose: 650 mg Albuterol Sulfate (Ventolin) 2.5 mg NEB Q2H PRN PRN Reason: Wheezing Albuterol/Ipratropium (Duoneb) 3 ml NEB [id number] [facility] Last Admin: 06/02/17 13:47 Dose: Not Given Diphenhydramine HCl (Benadryl) 25 mg IVP Q3H PRN PRN Reason: Itching Last Admin: 05/31/17 23:22 Dose: 25 mg Diphenhydramine HCl (Benadryl) 25 mg PO Q3H PRN PRN Reason: Itching Diphenhydramine HCl (Benadryl) 25 mg IM Q3H PRN PRN Reason: Itching Docusate Sodium (Colace) 100 mg PO BID [facility] Last Admin: 06/02/17 07:46 Dose: 100 mg Famotidine (Pepcid) 20 mg PO BID [facility] Last Admin: 06/02/17 07:46 Dose: 20 mg Guaifenesin/Dextromethorphan (Robitussin Dm) 15 ml PO Q4H PRN PRN Reason: Cough Hydromorphone HCl (Dilaudid Cadd) 0 mg IVPB INF PRN PRN Reason: Pain Sodium Chloride (Normal Saline 0.9%) 1,000 mls @ 50 mls/hr IV .Q20H [facility] Last Admin: 06/02/17 13:25 Dose: Not Given Ceftriaxone Sodium 2 gm/ (Sodium Chloride) 100 mls @ 200 mls/hr IVPB Q24HR@ 2300 [facility] Last Admin: 06/01/17 22:03 Dose: 100 mls Promethazine HCl 6.25 mg/ (Sodium Chloride) 50.25 mls @ 201 mls/hr IVPB Q6H PRN PRN Reason: Nausea Last Admin: 06/02/17 07:45 Dose: 50.25 mls Ipratropium [place] (Atrovent 0.06% Nasal Inhaler) 0 ml EA NARE BID [facility] Last Admin: 06/02/17 07:53 Dose: 1 spray Metoprolol Tartrate (Lopressor) 12.5 mg PO BID [facility] Last Admin: 06/02/17 07:46 Dose: 12.5 mg Naloxone HCl (Narcan) 0.2 mg IV Q5MIN PRN PRN Reason: Opiate Reversal Nitroglycerin (Nitro-Bid 2% Ointment) 0.5 inch TOP Q8HR [facility] Last Admin: 06/02/17 13:25 Dose: Not Given Ondansetron HCl (Zofran) 4 mg IVP Q6H PRN PRN Reason: Nausea/Vomiting Last Admin: 05/30/17 22:22 Dose: 4 mg Oxymetazoline HCl (Oxymetazoline Hcl) 1 sprays NASAL BID [facility] Stop: 06/02/17 21:01 Last Admin: 06/02/17 07:53 Dose: 1 spr Oxymetazoline HCl (Oxymetazoline Hcl) 0 sprays NASAL PRN PRN PRN Reason: Nasal BLEEDING Last Admin: 06/01/17 15:00 Dose: 1 spr Sodium Chloride (Flush - Normal Saline) 10 ml IVF Q12HR [facility] Last Admin: 06/02/17 07:54 Dose: Not Given Sodium Chloride (Flush - Normal Saline) 10 ml IVF PRN PRN PRN Reason: Saline Flush Sucralfate (Carafate) 1 gm PO ACHS [facility] Last Admin: 06/02/17 12:10 Dose: Not Given Zolpidem Tartrate (Ambien) 5 mg PO HSPRN PRN PRN Reason: Insomnia
[2017-06-02] MEDS: Ondansetron HCl/PF 4 MG/2 ML Vial IVP PRN (20:42)
[2017-06-02] MEDS: cefTRIAXone\\ROCEPHIN 2 GM in Sodium Chloride 0.9% 100 ML IVPB SCH (21:01)
[2017-06-03] MEDS ORDERED: Promethazine HCl 25 MG/ML VIAL IVPB PRN ×2 (03:51→04:00)
[2017-06-03] MEDS: Promethazine HCl 25 MG/ML VIAL SLOW IVP PRN ×3 (04:05→22:04)
[2017-06-03] MEDS: Nitroglycerin 2% Ointment 1 INCH/1 GM Packet TOP SCH ×3 (05:19→21:41)
[2017-06-03] MEDS: Docusate 100 MG CAP PO SCH ×2 (08:21→21:28)
[2017-06-03] MEDS: Sucralfate 1 GM TAB PO SCH ×4 (08:21→21:28)
[2017-06-03] MEDS: Famotidine 20 MG TAB PO SCH ×2 (08:21→21:28)
[2017-06-03] MEDS: Ipratropium Bromide 0.06% Nasal Inhaler 15ml EA NARE SCH ×2 (08:23→22:31)
[2017-06-03] MEDS: Metoprolol Tartrate 25 MG TAB PO SCH ×2 (08:24→21:42)
[2017-06-03] MEDS: Sodium Chloride 0.9% 1,000 ML IV SCH (10:30)
[2017-06-03 13:39] LABS: Anisocytosis MODERATE=16-30 cells (100X) (0-5/hpf); Band 1 % (5-11); Eosinophils 4 % (0-10); Hemoglobin 9.1 g/dL (12.0-16.0); Howell Jolly Bodies SLIGHT = 1-2 cells (100X) (None Seen); Large Platelets SLIGHT; Lymphocytes 17 % (21-51); MDiff Complete? YES; Mean Corpuscular HGB CONC 34.4 g/dL (32.0-36.0); Mean Corpuscular Hemoglobin 31.4 pg (27.0-31.0); Mean Corpuscular Volume 91.3 fl (81.0-99.0); Mean Platelet Volume 9.1 fL (7.4-10.4); Monocytes 3 % (0-10); Neutrophil 74 % (42-75); Nucleated RBC 17 % (0); Ovalocytes SLIGHT = 2-5 cells (100X) (0-1/hpf); PLT Morphology Comment Appears Adequate; Pappenheimer Bodies SLIGHT = 1-2 cells (100X) (None Seen); Platelet Count 234 thou/uL (130-400); Poikilocytosis SLIGHT = 6-15 cells (100X) (0-5/hpf); Polychromasia MODERATE = 3-4 cells (100X) (0-2/hpf); RBC Distribution Width 20.1 % (11.5-14.5); Reactive Lymphocytes 1 % (0-10); Sickle Cells MODERATE= 6-15 cells (100X) (None Seen); Spherocytes SLIGHT = 1-5 cells (100X) (None Seen); Target Cells SLIGHT = 2-5 cells (100X) (0-1/hpf); Vacuoles SLIGHT; White Blood Cell (WBC) Count 13.8 thou/uL (4.8-10.8)
--- NOTE | 2017-06-03 15:15 | PDOC.PN ---
- Subjective Encounter Start Date: 06/03/17 Encounter Start Time: 14:00 Blayne is seen today, alert AND ORIENTED. She is complaining of left ankle swelling and pain. - Objective Resuscitation Status: Resuscitation Status FULL:Full Resuscitation MAR Reviewed: Yes Vital Signs & Weight: Vital Signs (12 hours) Temp Pulse Resp BP Pulse Ox 06/03/17 11:40 97.7 F 64 18 153/98 H 91 L 06/03/17 08:00 98.2 F 77 18 93 L 06/03/17 07:50 98.2 F 77 18 131/89 90 L 06/03/17 04:00 98.8 F 75 19 148/98 H 90 L Weight Weight 166 lb I&O: 06/02/17 06/03/17 06/04/17 06:59 06:59 07:59 Intake Total 2520 2240 360 Balance 2520 2240 360 Result Diagrams: 06/03/17 13:01 06/02/17 07:22 Radiology Reviewed by me: Yes Dx/Plan (1) Anemia, hemolytic Code(s): D58.9 - HEREDITARY HEMOLYTIC ANEMIA, UNSPECIFIED Status: Acute Qualifiers: Hemolytic anemia type: other hemoglobinopathy Qualified Code(s): D58.2 - Other hemoglobinopathies Comment: Primary Sickle Cell disease, pt has high Retic Count with signs of Worsening hemolysis,, Hb now is 9.1,,hematology on Board, pt is Not On hydroxyurea due to allergy. Pt has Active hemolysis with Increased Nucleated RBC /High retic count. No evidence of icterus noted. poor prognosis with persistant chest pain and High on narcotics with EDUCATIONAL PROGRAM DIRECTOR dilaudid. Will closley Monitor. (2) Elevated troponin I level Code(s): R74.8 - ABNORMAL LEVELS OF OTHER SERUM ENZYMES Status: Acute Comment: Cardiology dseen pt, will follow recommedation, Echo was normal, Continue on Aspirin/ BB. Will hold Asprin for persistant bleeding nostril. (3) History of CVA (cerebrovascular accident) Code(s): Z86.73 - PRSNL HX OF TIA (TIA), AND CEREB INFRC W/O RESID DEFICITS Status: Acute Comment: Hold Aspirin due to severe bleeding from Nostril, pt Dropping Hb. (4) Sickle cell crisis Code(s): D57.00 - HB-SS DISEASE WITH CRISIS, UNSPECIFIED Status: Acute Comment: Will continue with IV hydration, IV narcotics, and PRBC transfusion, pt seees a hematology Dr. Alaniz. Consulted oncall Oncology, follow recommedations. (5) Atelectasis of both lungs Code(s): J98.11 - ATELECTASIS Status: Acute Comment: Patient is hypoxic from Atelectesis , and due to poor breathing, encouraged to use IS more often, pt is least Motivated and looks deprresed with her situation. Explained she need to be consistant on Breathing exercise. (6) Left ankle swelling Code(s): M25.472 - EFFUSION, LEFT ANKLE Status: Acute Comment: Will get Xray to look for any periosteal reaction from Sickle cell. - Plan cont current plan of care, continue antibiotics, PT/OT, web content & social media manager, respiratory therapy, incentive spirometry, DVT proph w/lovenox * . - Discharge Day Encounter end time: 14:35 Review of Systems - Review of Systems Constitutional: negative: fever, chills, sweats, weakness, malaise, other Eyes: negative: Pain, Vision Change, Conjunctivae Inflammation, Eyelid Inflammation, Redness, Other ENT: negative: Ear Pain, Ear Discharge, Nose Pain, Nose Discharge, Nose Congestion, Mouth Pain, Mouth Swelling, Throat Pain, Throat Swelling, Other Respiratory: negative: Cough, Dry, Shortness of Breath, Hemoptysis, SOB with Excertion, Pleuritic Pain, Sputum, Wheezing Cardiovascular: negative: chest pain, palpitations, orthopnea, paroxysmal nocturnal dyspnea, edema, light headedness, other Gastrointestinal: negative: Nausea, Vomiting, Abdominal Pain, Diarrhea, Constipation, Melena, Hematochezia, Other Genitourinary: negative: Dysuria, Frequency, Incontinence, Hematuria, Retention , Other Musculoskeletal: negative: Neck Pain, Shoulder Pain, Arm Pain, Back Pain, Hand Pain, Leg Pain, Foot Pain, Other Skin: negative: Rash, Lesions, Buddy, Bruising, Other - Medications/Allergies Allergies/Adverse Reactions: Allergies Allergy/AdvReac Type Severity Reaction Status Date / Time fentanyl Allergy Verified 05/28/17 05:11 ketorolac [From Toradol] Allergy Verified 05/28/17 05:11 meperidine [From Demerol] Allergy Verified 05/28/17 05:11 morphine Allergy Verified 05/28/17 05:11 tramadol Allergy Verified 05/28/17 05:11 Medications: Current Medications Acetaminophen (Tylenol) 650 mg PO Q4H PRN PRN Reason: Headache/Fever or Pain Last Admin: 05/31/17 16:50 Dose: 650 mg Albuterol Sulfate (Ventolin) 2.5 mg NEB Q2H PRN PRN Reason: Wheezing Albuterol/Ipratropium (Duoneb) 3 ml NEB [id number] [facility] Last Admin: 06/03/17 13:37 Dose: Not Given Diphenhydramine HCl (Benadryl) 25 mg IVP Q3H PRN PRN Reason: Itching Last Admin: 05/31/17 23:22 Dose: 25 mg Diphenhydramine HCl (Benadryl) 25 mg PO Q3H PRN PRN Reason: Itching Diphenhydramine HCl (Benadryl) 25 mg IM Q3H PRN PRN Reason: Itching Docusate Sodium (Colace) 100 mg PO BID [facility] Last Admin: 06/03/17 08:21 Dose: Not Given Famotidine (Pepcid) 20 mg PO BID [facility] Last Admin: 06/03/17 08:21 Dose: Not Given Guaifenesin/Dextromethorphan (Robitussin Dm) 15 ml PO Q4H PRN PRN Reason: Cough Hydromorphone HCl (Dilaudid Cadd) 0 mg IVPB INF PRN PRN Reason: Pain Sodium Chloride (Normal Saline 0.9%) 1,000 mls @ 50 mls/hr IV .Q20H [facility] Last Admin: 06/03/17 10:30 Dose: 1,000 mls Ceftriaxone Sodium 2 gm/ (Sodium Chloride) 100 mls @ 200 mls/hr IVPB Q24HR@ 2300 [facility] Last Admin: 06/02/17 21:01 Dose: 100 mls Ipratropium [place] (Atrovent 0.06% Nasal Inhaler) 0 ml EA NARE BID [facility] Last Admin: 06/03/17 08:23 Dose: Not Given Metoprolol Tartrate (Lopressor) 12.5 mg PO BID [facility] Last Admin: 06/03/17 08:24 Dose: 12.5 mg Naloxone HCl (Narcan) 0.2 mg IV Q5MIN PRN PRN Reason: Opiate Reversal Nitroglycerin (Nitro-Bid 2% Ointment) 0.5 inch TOP Q8HR [facility] Last Admin: 06/03/17 14:11 Dose: Not Given Ondansetron HCl (Zofran) 4 mg IVP Q6H PRN PRN Reason: Nausea/Vomiting Last Admin: 06/02/17 20:42 Dose: 4 mg Oxymetazoline HCl (Oxymetazoline Hcl) 0 sprays NASAL PRN PRN PRN Reason: Nasal BLEEDING Last Admin: 06/01/17 15:00 Dose: 1 spr Promethazine HCl (Phenergan) 6.25 mg SLOW IVP Q6H PRN PRN Reason: Nausea/Vomiting Last Admin: 06/03/17 11:34 Dose: 6.25 mg Sodium Chloride (Flush - Normal Saline) 10 ml IVF Q12HR [facility] Last Admin: 06/03/17 08:23 Dose: Not Given Sodium Chloride (Flush - Normal Saline) 10 ml IVF PRN PRN PRN Reason: Saline Flush Sucralfate (Carafate) 1 gm PO ACHS [facility] Last Admin: 06/03/17 11:28 Dose: Not Given Zolpidem Tartrate (Ambien) 5 mg PO HSPRN PRN PRN Reason: Insomnia
--- NOTE | 2017-06-03 16:41 | RAD ---
LEFT ANKLE THREE VIEWS 06/03/17 HISTORY: Left ankle pain. FINDINGS/IMPRESSION: Soft tissue swelling is seen. The ankle mortise is maintained. No acute fracture or dislocation or [place] destruction is identified. POS: [facility]
[2017-06-03] MEDS: HYDROmorphone 10 mg/100 ml CADD IVPB PRN (21:30)
[2017-06-03] MEDS: cefTRIAXone\\ROCEPHIN 2 GM in Sodium Chloride 0.9% 100 ML IVPB SCH (23:10)
[2017-06-03] MEDS: diphenhydrAMINE 50 MG/ML VIAL IVP PRN (23:15)
[2017-06-04] MEDS: Nitroglycerin 2% Ointment 1 INCH/1 GM Packet TOP SCH ×3 (05:25→19:27)
[2017-06-04] MEDS: Sodium Chloride 0.9% 1,000 ML IV SCH ×2 (05:26→14:13)
[2017-06-04] MEDS: Docusate 100 MG CAP PO SCH ×2 (07:19→19:26)
[2017-06-04] MEDS: Sucralfate 1 GM TAB PO SCH ×4 (07:19→19:27)
[2017-06-04] MEDS: Famotidine 20 MG TAB PO SCH ×2 (07:19→19:26)
[2017-06-04] MEDS: Ipratropium Bromide 0.06% Nasal Inhaler 15ml EA NARE SCH ×2 (07:20→19:26)
[2017-06-04] MEDS: Metoprolol Tartrate 25 MG TAB PO SCH ×2 (08:18→19:26)
--- NOTE | 2017-06-04 13:06 | PDOC.PN ---
- Subjective Encounter Start Date: 06/04/17 Encounter Start Time: 10:00 patient is seen today, alert and oriented. She continuos to c/o chest pain , it is very hard to communicate with her, she comes up with new complaint everyday, not motivated and is drugged up with dilaudid, very difficult patient and has worsening Sickle cell disease due to allergy to hydroxyurea, its been challege to treat her crisis. - Objective Resuscitation Status: Resuscitation Status FULL:Full Resuscitation MAR Reviewed: Yes Vital Signs & Weight: Vital Signs (12 hours) Temp Pulse Resp BP Pulse Ox 06/04/17 08:00 98.4 F 72 16 93 L 06/04/17 03:36 98.4 F 72 16 145/90 H 90 L 06/04/17 00:27 76 16 147/94 H Weight Weight 172 lb I&O: 06/03/17 06/04/17 06/05/17 05:59 06:59 06:59 Intake Total Balance Result Diagrams: 06/03/17 13:01 06/02/17 07:22 Radiology Reviewed by me: Yes ( No fracture of tibia noted.) Phys Exam - Physical Examination HEENT: PERRLA, moist MMs Neck: no nodes, no JVD Respiratory: no wheezing, no rales Cardiovascular: RRR, no significant murmur Gastrointestinal: soft, non-tender Musculoskeletal: pulses present, edema present Neurological: non-focal, normal sensation Lymphatic: no nodes Psychiatric: A&O x 3 Deviation from normal: Depressed with her situation, not motivated. Skin: no rash, normal turgor Dx/Plan (1) Anemia, hemolytic Code(s): D58.9 - HEREDITARY HEMOLYTIC ANEMIA, UNSPECIFIED Status: Acute Qualifiers: Hemolytic anemia type: other hemoglobinopathy Qualified Code(s): D58.2 - Other hemoglobinopathies Comment: Primary Sickle Cell disease, pt has high Retic Count with signs of Worsening hemolysis,, Hb now is 9.1,,hematology on Board, pt is Not On hydroxyurea due to allergy. Pt has Active hemolysis with Increased Nucleated RBC /High retic count. No evidence of icterus noted. poor prognosis with persistant chest pain and High on narcotics with LANDING SCALER dilaudid. Will isis Monitor. (2) Elevated troponin I level Code(s): R74.8 - ABNORMAL LEVELS OF OTHER SERUM ENZYMES Status: Acute Comment: Cardiology dseen pt, will follow recommedation, Echo was normal, Continue on Aspirin/ BB. Will hold Asprin for persistant bleeding nostril. (3) History of CVA (cerebrovascular accident) Code(s): Z86.73 - PRSNL HX OF TIA (TIA), AND CEREB INFRC W/O RESID DEFICITS Status: Acute Comment: Hold Aspirin due to severe bleeding from Nostril, pt Dropping Hb. (4) Sickle cell crisis Code(s): D57.00 - HB-SS DISEASE WITH CRISIS, UNSPECIFIED Status: Acute Comment: Will continue with IV hydration, IV narcotics, and PRBC transfusion, pt seees a hematology Dr. Alaniz. Consulted oncall Oncology, follow recommedations. (5) Atelectasis of both lungs Code(s): J98.11 - ATELECTASIS Status: Acute Comment: Patient is hypoxic from Atelectesis , and due to poor breathing, encouraged to use IS more often, pt is least Motivated and looks deprresed with her situation. Explained she need to be consistant on Breathing exercise. (6) Left ankle swelling Code(s): M25.472 - EFFUSION, LEFT ANKLE Status: Acute Comment: ru;led out fracture on inflammation on bone, adviced hot compresses and elevate leg - Plan cont current plan of care, continue antibiotics, PT/OT, social worker, respiratory therapy, incentive spirometry, out of bed/ambulate, DVT proph w/ lovenox * . - Discharge Day Encounter end time: 10:35 Review of Systems - Review of Systems Eyes: negative: Pain, Vision Change, Conjunctivae Inflammation, Eyelid Inflammation, Redness, Other ENT: negative: Ear Pain, Ear Discharge, Nose Pain, Nose Discharge, Nose Congestion, Mouth Pain, Mouth Swelling, Throat Pain, Throat Swelling, Other Respiratory: negative: Cough, Dry, Shortness of Breath, Hemoptysis, SOB with Excertion, Pleuritic Pain, Sputum, Wheezing Cardiovascular: chest pain Gastrointestinal: negative: Nausea, Vomiting, Abdominal Pain, Diarrhea, Constipation, Melena, Hematochezia, Other Genitourinary: negative: Dysuria, Frequency, Incontinence, Hematuria, Retention , Other Musculoskeletal: Leg Pain. negative: Neck Pain, Shoulder Pain, Arm Pain, Back Pain, Hand Pain, Foot Pain, Other Skin: negative: Rash, Lesions, Buddy, Bruising, Other - Medications/Allergies Allergies/Adverse Reactions: Allergies Allergy/AdvReac Type Severity Reaction Status Date / Time fentanyl Allergy Verified 05/28/17 05:11 ketorolac [From Toradol] Allergy Verified 05/28/17 05:11 meperidine [From Demerol] Allergy Verified 05/28/17 05:11 morphine Allergy Verified 05/28/17 05:11 tramadol Allergy Verified 05/28/17 05:11 Medications: Current Medications Acetaminophen (Tylenol) 650 mg PO Q4H PRN PRN Reason: Headache/Fever or Pain Last Admin: 05/31/17 16:50 Dose: 650 mg Albuterol Sulfate (Ventolin) 2.5 mg NEB Q2H PRN PRN Reason: Wheezing Diphenhydramine HCl (Benadryl) 25 mg IVP Q3H PRN PRN Reason: Itching Last Admin: 06/03/17 23:15 Dose: 25 mg Diphenhydramine HCl (Benadryl) 25 mg PO Q3H PRN PRN Reason: Itching Diphenhydramine HCl (Benadryl) 25 mg IM Q3H PRN PRN Reason: Itching Docusate Sodium (Colace) 100 mg PO BID [facility] Last Admin: 06/04/17 07:19 Dose: Not Given Famotidine (Pepcid) 20 mg PO BID [facility] Last Admin: 06/04/17 07:19 Dose: Not Given Guaifenesin/Dextromethorphan (Robitussin Dm) 15 ml PO Q4H PRN PRN Reason: Cough Hydromorphone HCl (Dilaudid Cadd) 0 mg IVPB INF PRN PRN Reason: Pain Last Admin: 06/03/17 21:30 Dose: 10 mg Sodium Chloride (Normal Saline 0.9%) 1,000 mls @ 50 mls/hr IV .Q20H [facility] Last Admin: 06/04/17 05:26 Dose: 1,000 mls Ceftriaxone Sodium 2 gm/ (Sodium Chloride) 100 mls @ 200 mls/hr IVPB Q24HR@ 2300 [facility] Last Admin: 06/03/17 23:10 Dose: 100 mls Ipratropium [place] (Atrovent 0.06% Nasal Inhaler) 0 ml EA NARE BID [facility] Last Admin: 06/04/17 07:20 Dose: Not Given Metoprolol Tartrate (Lopressor) 12.5 mg PO BID [facility] Last Admin: 06/04/17 08:18 Dose: 12.5 mg Naloxone HCl (Narcan) 0.2 mg IV Q5MIN PRN PRN Reason: Opiate Reversal Nitroglycerin (Nitro-Bid 2% Ointment) 0.5 inch TOP Q8HR [facility] Last Admin: 06/04/17 05:25 Dose: Not Given Ondansetron HCl (Zofran) 4 mg IVP Q6H PRN PRN Reason: Nausea/Vomiting Last Admin: 06/02/17 20:42 Dose: 4 mg Oxymetazoline HCl (Oxymetazoline Hcl) 0 sprays NASAL PRN PRN PRN Reason: Nasal BLEEDING Last Admin: 06/01/17 15:00 Dose: 1 spr Promethazine HCl (Phenergan) 6.25 mg SLOW IVP Q6H PRN PRN Reason: Nausea/Vomiting Last Admin: 06/03/17 22:04 Dose: 6.25 mg Sodium Chloride (Flush - Normal Saline) 10 ml IVF Q12HR [facility] Last Admin: 06/04/17 07:20 Dose: Not Given Sodium Chloride (Flush - Normal Saline) 10 ml IVF PRN PRN PRN Reason: Saline Flush Sucralfate (Carafate) 1 gm PO ACHS [facility] Last Admin: 06/04/17 11:07 Dose: Not Given Zolpidem Tartrate (Ambien) 5 mg PO HSPRN PRN PRN Reason: Insomnia
[2017-06-04] MEDS ORDERED: Sodium Chloride 0.9% 1,000 ML IV SCH (13:45)
[2017-06-04 14:02] LABS: Hemoglobin 9.5 g/dL (12.0-16.0); Mean Corpuscular HGB CONC 34.3 g/dL (32.0-36.0); Mean Corpuscular Hemoglobin 31.8 pg (27.0-31.0); Mean Corpuscular Volume 92.7 fl (81.0-99.0); Mean Platelet Volume 8.5 fL (7.4-10.4); Platelet Count 267 thou/uL (130-400); RBC Distribution Width 21.6 % (11.5-14.5)
[2017-06-04 14:16] LABS: White Blood Cell (WBC) Count 9.9 thou/uL (4.8-10.8)
[2017-06-04 14:20] LABS: Anisocytosis MODERATE=16-30 cells (100X) (0-5/hpf); Band 1 % (5-11); Eosinophils 2 % (0-10); Howell Jolly Bodies SLIGHT = 1-2 cells (100X) (None Seen); Large Platelets SLIGHT; Lymphocytes 18 % (21-51); MDiff Complete? YES; Monocytes 9 % (0-10); Neutrophil 68 % (42-75); Nucleated RBC 35 % (0); Ovalocytes SLIGHT = 2-5 cells (100X) (0-1/hpf); PLT Morphology Comment Appears Adequate; Pappenheimer Bodies SLIGHT = 1-2 cells (100X) (None Seen); Poikilocytosis MODERATE=16-30 cells (100X) (0-5/hpf); Polychromasia MODERATE = 3-4 cells (100X) (0-2/hpf); Reactive Lymphocytes 1 % (0-10); Schistocytes SLIGHT = 2-5 cells (100X) (0-1/hpf); Sickle Cells MODERATE= 6-15 cells (100X) (None Seen); Spherocytes SLIGHT = 1-5 cells (100X) (None Seen); Target Cells SLIGHT = 2-5 cells (100X) (0-1/hpf)
[2017-06-04] MEDS ORDERED: Ibuprofen 800 MG TAB PO SCH (15:00)
[2017-06-04] MEDS: Promethazine HCl 25 MG/ML VIAL SLOW IVP PRN (15:39)
[2017-06-04] MEDS: diphenhydrAMINE 50 MG/ML VIAL IVP PRN (20:04)
[2017-06-04] MEDS: cefTRIAXone\\ROCEPHIN 2 GM in Sodium Chloride 0.9% 100 ML IVPB SCH (23:41)
[2017-06-05] MEDS ORDERED: Cepastat Lozenges 1 LOZ PO PRN (00:46)
[2017-06-05] MEDS: Nitroglycerin 2% Ointment 1 INCH/1 GM Packet TOP SCH ×3 (05:05→20:08)
--- NOTE | 2017-06-05 09:09 | PDOC.PN ---
- Subjective Encounter Start Date: 06/05/17 Encounter Start Time: 10:30 Subjective: Patient continues to complain of chest and body pain. States it is no matt -: and actually worse since admit. Patient very sleepy from Dilaudid MILLING MACHINIST and -: but arousable. No apparent distress. No more nose bleed over weekend. - Objective Resuscitation Status: Resuscitation Status FULL:Full Resuscitation MAR Reviewed: Yes Vital Signs & Weight: Vital Signs (12 hours) Temp Pulse Resp BP Pulse Ox 06/04/17 21:36 98.4 F 67 16 147/97 H 90 L Weight Weight 172 lb I&O: 06/04/17 06/05/17 06/06/17 06:59 06:59 06:59 Intake Total 1550 Balance 1550 Result Diagrams: 06/04/17 13:50 06/02/17 07:22 Phys Exam - Physical Examination Constitutional: NAD HEENT: moist MMs Respiratory: no wheezing, no rhonchi some mild crackles in bilateral mid lungs Cardiovascular: RRR, no significant murmur Gastrointestinal: soft, positive bowel sounds Neurological: non-focal, moves all 4 limbs Psychiatric: A&O x 3 Deviation from normal: depressed affect Dx/Plan (1) Sickle cell crisis Code(s): D57.00 - HB-SS DISEASE WITH CRISIS, UNSPECIFIED Status: Acute Comment: Will continue with IV hydration, IV narcotics, and PRBC transfusion, pt seees a hematology Dr. Alaniz. Heme/Onc consulted and following. (2) Anemia, hemolytic Code(s): D58.9 - HEREDITARY HEMOLYTIC ANEMIA, UNSPECIFIED Status: Acute Qualifiers: Hemolytic anemia type: other hemoglobinopathy Qualified Code(s): D58.2 - Other hemoglobinopathies Comment: Primary Sickle Cell disease, pt has high Retic Count with signs of Worsening hemolysis,, Hb now is 9.1,,hematology on Board, pt is Not On hydroxyurea due to allergy. Pt has Active hemolysis with Increased Nucleated RBC /High retic count. No evidence of icterus noted. poor prognosis with persistant chest pain and High on narcotics with MILLING MACHINIST dilaudid. Will rohanley Monitor. (3) Elevated troponin I level Code(s): R74.8 - ABNORMAL LEVELS OF OTHER SERUM ENZYMES Status: Acute Comment: Cardiology dseen pt, will follow recommedation, Echo was normal, Continue on Aspirin/ BB. Can restart ASA with nose bleed resolution. (4) History of CVA (cerebrovascular accident) Code(s): Z86.73 - PRSNL HX OF TIA (TIA), AND CEREB INFRC W/O RESID DEFICITS Status: Acute Comment: Hold Aspirin due to severe bleeding from Nostril, pt Dropping Hb. (5) Atelectasis of both lungs Code(s): J98.11 - ATELECTASIS Status: Acute Comment: Patient is hypoxic from Atelectesis , and due to poor breathing, encouraged to use IS more often, pt is least Motivated and looks deprresed with her situation. Explained she need to be consistant on Breathing exercise. (6) Left ankle swelling Code(s): M25.472 - EFFUSION, LEFT ANKLE Status: Acute Comment: ru;led out fracture on inflammation on bone, adviced hot compresses and elevate leg - Plan cont current plan of care * . - Discharge Day Encounter end time: 10:45
[2017-06-05] MEDS: Ipratropium Bromide 0.06% Nasal Inhaler 15ml EA NARE SCH ×2 (09:23→20:09)
[2017-06-05] MEDS: Docusate 100 MG CAP PO SCH ×2 (09:23→20:07)
[2017-06-05] MEDS: Sucralfate 1 GM TAB PO SCH ×4 (09:23→20:08)
[2017-06-05] MEDS: Famotidine 20 MG TAB PO SCH ×2 (09:23→20:07)
[2017-06-05] MEDS: Promethazine HCl 25 MG/ML VIAL SLOW IVP PRN ×2 (11:14→18:44)
[2017-06-05] MEDS: Metoprolol Tartrate 25 MG TAB PO SCH ×2 (11:16→20:01)
[2017-06-05] MEDS: Sodium Chloride 0.9% 1,000 ML IV SCH ×2 (11:23→20:02)
[2017-06-05] MEDS: Acetaminophen 325 MG TAB PO PRN (12:38)
[2017-06-05 14:40] LABS: Hemoglobin 9.6 g/dL (12.0-16.0); Mean Corpuscular HGB CONC 33.3 g/dL (32.0-36.0); Mean Corpuscular Hemoglobin 31.5 pg (27.0-31.0); Mean Corpuscular Volume 94.6 fl (81.0-99.0); Mean Platelet Volume 8.6 fL (7.4-10.4); Platelet Count 294 thou/uL (130-400); Red Blood Cell (RBC) Count 3.03 mill/uL (4.20-5.40)
[2017-06-05 14:43] LABS: Anisocytosis MODERATE=16-30 cells (100X) (0-5/hpf); Band 2 % (5-11); Elliptocytes SLIGHT = 2-5 cells (100X) (0-1/hpf); Eosinophils 4 % (0-10); Howell Jolly Bodies SLIGHT = 1-2 cells (100X) (None Seen); Lymphocytes 21 % (21-51); MDiff Complete? YES; Monocytes 3 % (0-10); Neutrophil 67 % (42-75); Nucleated RBC 59 % (0); Ovalocytes SLIGHT = 2-5 cells (100X) (0-1/hpf); PLT Morphology Comment Appears Adequate; Pappenheimer Bodies SLIGHT = 1-2 cells (100X) (None Seen); Poikilocytosis MODERATE=16-30 cells (100X) (0-5/hpf); Polychromasia MODERATE = 3-4 cells (100X) (0-2/hpf); Reactive Lymphocytes 1 % (0-10); Schistocytes SLIGHT = 2-5 cells (100X) (0-1/hpf); Sickle Cells MODERATE= 6-15 cells (100X) (None Seen); Spherocytes SLIGHT = 1-5 cells (100X) (None Seen); Target Cells SLIGHT = 2-5 cells (100X) (0-1/hpf)
[2017-06-05] MEDS: cefTRIAXone\\ROCEPHIN 2 GM in Sodium Chloride 0.9% 100 ML IVPB SCH (20:02)
[2017-06-05] MEDS: diphenhydrAMINE 50 MG/ML VIAL IVP PRN (21:43)
[2017-06-06] MEDS: Promethazine HCl 25 MG/ML VIAL SLOW IVP PRN ×4 (00:28→19:05)
[2017-06-06] MEDS: HYDROmorphone 10 mg/100 ml CADD IVPB PRN (05:38)
[2017-06-06] MEDS: Sodium Chloride 0.9% 1,000 ML IV SCH (05:44)
[2017-06-06] MEDS: Nitroglycerin 2% Ointment 1 INCH/1 GM Packet TOP SCH ×3 (05:44→22:40)
[2017-06-06] MEDS: Docusate 100 MG CAP PO SCH ×2 (10:16→22:39)
[2017-06-06] MEDS: Sucralfate 1 GM TAB PO SCH ×4 (10:16→22:39)
[2017-06-06] MEDS: Famotidine 20 MG TAB PO SCH ×2 (10:17→22:39)
[2017-06-06] MEDS: Ipratropium Bromide 0.06% Nasal Inhaler 15ml EA NARE SCH ×2 (10:17→22:39)
[2017-06-06] MEDS: Metoprolol Tartrate 25 MG TAB PO SCH ×2 (12:34→22:39)
--- NOTE | 2017-06-06 14:59 | PDOC.PN ---
- Subjective Encounter Start Date: 06/06/17 Encounter Start Time: 11:00 -: old records requested/rev Pt seen and examined, chart reviewe din its entirety, this is my first visit with this patient. Pt somnolent but arousable, unable to tell me about her pain. review of the notes reveal no f/C, no N/v/D/c, no CP or SOB pt remaine don dilaudid WHEELCHAIR VAN OPERATOR FIRST RESPONDER 10 point ROS attempted, pt too sleepy. - Objective Resuscitation Status: Resuscitation Status FULL:Full Resuscitation MAR Reviewed: Yes Vital Signs & Weight: Vital Signs (12 hours) Temp Pulse Resp BP Pulse Ox 06/06/17 12:39 93 L 06/06/17 12:00 98.1 F 65 16 147/97 H 93 L 06/06/17 08:54 98.1 F 65 20 148/95 H 87 L 06/06/17 08:01 98.1 F 65 20 91 L Weight Weight 172 lb I&O: 06/05/17 06/06/17 06/07/17 06:59 06:59 06:59 Intake Total 1550 2089 Balance 1550 2089 Result Diagrams: 06/05/17 13:59 06/02/17 07:22 Radiology Reviewed by me: Yes Phys Exam - Physical Examination Constitutional: NAD HEENT: PERRLA, moist MMs, sclera anicteric, oral pharynx no lesions Neck: no nodes, no JVD, supple Respiratory: no wheezing, no rales, no rhonchi, clear to auscultation bilateral Cardiovascular: RRR, no significant murmur, no rub Gastrointestinal: soft, non-tender, no distention, positive bowel sounds Musculoskeletal: no edema, pulses present Neurological: non-focal, normal sensation, moves all 4 limbs Lymphatic: no nodes Skin: no rash, normal turgor, cap refill <2 seconds Dx/Plan (1) Anemia, hemolytic Code(s): D58.9 - HEREDITARY HEMOLYTIC ANEMIA, UNSPECIFIED Status: Acute Qualifiers: Hemolytic anemia type: other hemoglobinopathy Qualified Code(s): D58.2 - Other hemoglobinopathies Comment: Primary Sickle Cell disease, pt has high Retic Count with signs of Worsening hemolysis,, Hb now is 9.1,,hematology on Board, pt is Not On hydroxyurea due to allergy. Pt has Active hemolysis with Increased Nucleated RBC /High retic count. No evidence of icterus noted. poor prognosis with persistant chest pain and High on narcotics with WHEELCHAIR VAN OPERATOR FIRST RESPONDER dilaudid. Will closley Monitor. (2) Atelectasis of both lungs Code(s): J98.11 - ATELECTASIS Status: Acute Comment: Patient is hypoxic from Atelectesis , and due to poor breathing, encouraged to use IS more often, pt is least Motivated and looks deprresed with her situation. Explained she need to be consistant on Breathing exercise. (3) Elevated d-dimer Code(s): R79.89 - OTHER SPECIFIED ABNORMAL FINDINGS OF BLOOD CHEMISTRY Status : Acute (4) Elevated troponin I level Code(s): R74.8 - ABNORMAL LEVELS OF OTHER SERUM ENZYMES Status: Acute Comment: Cardiology dseen pt, will follow recommedation, Echo was normal, Continue on Aspirin/ BB. Can restart ASA with nose bleed resolution. (5) History of CVA (cerebrovascular accident) Code(s): Z86.73 - PRSNL HX OF TIA (TIA), AND CEREB INFRC W/O RESID DEFICITS Status: Acute Comment: Hold Aspirin due to severe bleeding from Nostril, pt Dropping Hb. (6) Left ankle swelling Code(s): M25.472 - EFFUSION, LEFT ANKLE Status: Acute Comment: ru;led out fracture on inflammation on bone, adviced hot compresses and elevate leg (7) Sickle cell crisis Code(s): D57.00 - HB-SS DISEASE WITH CRISIS, UNSPECIFIED Status: Acute Comment: Will continue with IV hydration, IV narcotics, and PRBC transfusion, pt seees a hematology Dr. Alaniz. Heme/Onc consulted and following. - Plan * .
[2017-06-06] MEDS: cefTRIAXone\\ROCEPHIN 2 GM in Sodium Chloride 0.9% 100 ML IVPB SCH (20:45)
[2017-06-06] MEDS: diphenhydrAMINE 50 MG/ML VIAL IVP PRN (22:41)
[2017-06-07] MEDS: Promethazine HCl 25 MG/ML VIAL SLOW IVP PRN ×3 (01:36→20:34)
[2017-06-07] MEDS: Sodium Chloride 0.9% 1,000 ML IV SCH ×2 (03:25→22:18)
[2017-06-07] MEDS: Nitroglycerin 2% Ointment 1 INCH/1 GM Packet TOP SCH ×3 (04:33→19:08)
[2017-06-07 05:17] LABS: Eosinophils 4 % (0-10); Hemoglobin 9.5 g/dL (12.0-16.0); Lymphocytes 20 % (21-51); MDiff Complete? YES; Mean Corpuscular HGB CONC 33.8 g/dL (32.0-36.0); Mean Corpuscular Hemoglobin 32.1 pg (27.0-31.0); Mean Platelet Volume 8.2 fL (7.4-10.4); Metamyelocyte 1 % (0-0); Monocytes 10 % (0-10); Neutrophil 65 % (42-75); Nucleated RBC 33 % (0); PLT Morphology Comment Appears Adequate; Platelet Count 323 thou/uL (130-400); Polychromasia MODERATE = 3-4 cells (100X) (0-2/hpf); RBC Distribution Width 21.4 % (11.5-14.5); Red Blood Cell (RBC) Count 2.97 mill/uL (4.20-5.40); Sickle Cells MODERATE= 6-15 cells (100X) (None Seen); Target Cells SLIGHT = 2-5 cells (100X) (0-1/hpf)
[2017-06-07 05:25] LABS: Anion Gap 11 mmol/L (10-20); BUN (Urea Nitrogen) 4 mg/dL (7.0-18.7); Calc. Creatinine Clearance 225 mL/min (70-130); Carbon Dioxide 29 mmol/L (22-29); Chloride 106 mmol/L (98-107); Estimated GFR-MDRD Greater than 90; Glucose 105 mg/dL (70-105); Magnesium 1.5 mg/dL (1.6-2.6); Potassium 3.5 mmol/L (3.5-5.1); Sodium 142 mmol/L (136-145)
--- NOTE | 2017-06-07 06:54 | EKG ---
Test Reason : Blood Pressure : / mmHG Vent. Rate : 065 BPM Atrial Rate : 065 BPM P-R Int : 178 ms QRS Dur : 092 ms QT Int : 464 ms P-R-T Axes : 059 025 093 degrees QTc Int : 482 ms Normal sinus rhythm Possible Left atrial enlargement T wave abnormality, consider anterior ischemia Prolonged QT Abnormal ECG When compared with ECG of 31-MAY-2017 18:38, (Unconfirmed) Nonspecific T wave abnormality has replaced inverted T waves in Lateral leads Confirmed by DR. Antonieta QUINTANA ([id number]) on 06/07/2017 6:54:17 AM Referred By: SCOTT Confirmed By:DR. Antonieta QUINTANA
[2017-06-07] MEDS: Sucralfate 1 GM TAB PO SCH ×4 (07:01→19:08)
[2017-06-07] MEDS: Docusate 100 MG CAP PO SCH ×2 (07:01→19:07)
[2017-06-07] MEDS: Famotidine 20 MG TAB PO SCH ×2 (07:01→19:07)
[2017-06-07] MEDS ORDERED: Magnesium 2 GM/NS 0.9% 100 ML 2 GM in Premix Bag 1 BAG IVPB SCH (07:15)
[2017-06-07] MEDS: Metoprolol Tartrate 25 MG TAB PO SCH ×2 (08:11→19:08)
[2017-06-07] MEDS: Ipratropium Bromide 0.06% Nasal Inhaler 15ml EA NARE SCH ×2 (08:51→19:07)
[2017-06-07] MEDS: Acetaminophen 325 MG TAB PO PRN ×2 (10:35→16:02)
--- NOTE | 2017-06-07 12:01 | PDOC.PN ---
- Subjective Encounter Start Date: 06/07/17 Encounter Start Time: 10:30 pt more awake and alert, sitting up. asking when she gets to go. Still on dilaudid RN COMPLIANCE. discussed transition to po pain meds and stoping dilaudid if successful no f/c, no n/v/d/c, no CP or SOB. refusing to wear O2 when sats 10 point ROS performed and neg for all systems except as per HPI - Objective Resuscitation Status: Resuscitation Status FULL:Full Resuscitation MAR Reviewed: Yes Vital Signs & Weight: Vital Signs (12 hours) Temp Pulse Resp BP Pulse Ox 06/07/17 08:00 98.8 F 84 18 92 L 06/07/17 07:58 98.8 F 84 18 152/96 H Weight Weight 172 lb I&O: 06/06/17 06/07/17 06/08/17 06:59 06:59 06:59 Intake Total 2089 2249 Balance 2089 2249 Result Diagrams: 06/07/17 04:50 06/07/17 04:50 Phys Exam - Physical Examination Constitutional: NAD HEENT: PERRLA, moist MMs, sclera anicteric, oral pharynx no lesions Neck: no nodes, no JVD, supple, full ROM Respiratory: no wheezing, no rales, no rhonchi, clear to auscultation bilateral Cardiovascular: RRR, no rub 3/6 ISAAC stable Gastrointestinal: soft, non-tender, no distention, positive bowel sounds Musculoskeletal: no edema, pulses present Neurological: non-focal, normal sensation, moves all 4 limbs Lymphatic: no nodes Psychiatric: normal affect, A&O x 3 Skin: no rash, normal turgor, cap refill <2 seconds Dx/Plan (1) Anemia, hemolytic Code(s): D58.9 - HEREDITARY HEMOLYTIC ANEMIA, UNSPECIFIED Status: Acute Qualifiers: Hemolytic anemia type: other hemoglobinopathy Qualified Code(s): D58.2 - Other hemoglobinopathies Comment: Primary Sickle Cell disease, pt has high Retic Count with signs of Worsening hemolysis,, Hb now is 9.5,,hematology on Board. pt is Not On hydroxyurea due to allergy. Pt has Active hemolysis with Increased Nucleated RBC /High retic count but hgb not dropping now and retic cont coming down. No evidence of icterus noted. poor prognosis with persistant chest pain and High on narcotics with RN COMPLIANCE dilaudid. Will closley Monitor. (2) Atelectasis of both lungs Code(s): J98.11 - ATELECTASIS Status: Acute Comment: Patient is hypoxic from Atelectesis , and due to poor breathing, encouraged to use IS more often, pt is least Motivated and looks deprresed with her situation. Explained she need to be consistant on Breathing exercise. (3) Elevated d-dimer Code(s): R79.89 - OTHER SPECIFIED ABNORMAL FINDINGS OF BLOOD CHEMISTRY Status : Acute (4) Elevated troponin I level Code(s): R74.8 - ABNORMAL LEVELS OF OTHER SERUM ENZYMES Status: Acute Comment: Cardiology dseen pt, will follow recommedation, Echo was normal, Continue on Aspirin/ BB. Can restart ASA with nose bleed resolution. (5) History of CVA (cerebrovascular accident) Code(s): Z86.73 - PRSNL HX OF TIA (TIA), AND CEREB INFRC W/O RESID DEFICITS Status: Acute Comment: Hold Aspirin due to severe bleeding from Nostril, pt Dropping Hb. (6) Left ankle swelling Code(s): M25.472 - EFFUSION, LEFT ANKLE Status: Acute Comment: ru;led out fracture on inflammation on bone, adviced hot compresses and elevate leg (7) Sickle cell crisis Code(s): D57.00 - HB-SS DISEASE WITH CRISIS, UNSPECIFIED Status: Acute Comment: Will continue with IV hydration, IV narcotics, and PRBC transfusion, pt seees a hematology Dr. Alaniz. Heme/Onc consulted and following. - Plan cont current plan of care, out of bed/ambulate * .
[2017-06-07] MEDS: cefTRIAXone\\ROCEPHIN 2 GM in Sodium Chloride 0.9% 100 ML IVPB SCH (20:33)
[2017-06-07] MEDS: diphenhydrAMINE 50 MG/ML VIAL IVP PRN (23:08)
[2017-06-07] MEDS ORDERED: Pantoprazole 40 MG VIAL IVP SCH ×2 (23:30)
[2017-06-08] MEDS: Promethazine HCl 25 MG/ML VIAL SLOW IVP PRN (01:54)
[2017-06-08] MEDS: Nitroglycerin 2% Ointment 1 INCH/1 GM Packet TOP SCH ×2 (04:39→14:42)
[2017-06-08] MEDS: Sucralfate 1 GM TAB PO SCH ×3 (07:13→16:18)
[2017-06-08] MEDS: Ipratropium Bromide 0.06% Nasal Inhaler 15ml EA NARE SCH (07:14)
[2017-06-08] MEDS: Docusate 100 MG CAP PO SCH (07:14)
[2017-06-08] MEDS: Famotidine 20 MG TAB PO SCH (07:14)
[2017-06-08] MEDS: Metoprolol Tartrate 25 MG TAB PO SCH (07:50)
[2017-06-08 08:42] VITALS: BMI 31.4
[2017-06-08] MEDS: HYDROcodone/Acetaminophen 10/325 mg Tablet PO PRN ×2 (08:58→15:52)
[2017-06-08 09:03] VITALS: BP 142/93; TEMP 98.2
--- NOTE | 2017-06-08 15:17 | DIS ---
DATE OF ADMISSION: 05/28/2017 DATE OF DISCHARGE: 06/08/2017 PRIMARY CARE PHYSICIAN: Out of town DISCHARGE DIAGNOSES: 1. Acute sickle cell pain crisis. 2. Chest syndrome. 3. History of transient ischemic attack. 4. Acute ankle pain. 5. Opioid-induced hypoxia. 6. Sickle cell anemia. 7. History of stroke with left hemiparesis around the age of 9 with second at age of 17. CONSULTATIONS: 1. Cardiology, Dr. Félix Mejia. 2. Oncology, Brittani Jagdish. 3. Property And Casualty Insurance Agent in [place] is Dr. Alaniz. PROCEDURES: 1. Echocardiogram, date is 05/28/2017 with an EF of 60%-65% with mild LVH, normal LV size and functi on, moderate severe TR and mild PI. 2. She had CT angiogram on the morning of admission that was no evidence of pulmonary embolus, moder ate cardiomegaly, small left pleural effusion, bibasilar atelectasis, and patchy peripheral airspace opacity right middle lobe and left upper lobe, it may be due to atelectasis. 3. Code Green secondary to hypoxia on 06/01/2017 due to the patient refusing to wear her oxygen mask . HISTORY AND PHYSICAL: Ms. Hedrick is a 31-year-old female with history of sickle cell disease and pain crises followed by Hematology in [place]. She was in the emergency room on day of admission with retrosternal pain and all of her joints are aching for about 24 hours. Last crisis was about 2 months prior to admission. She was hospitalized in [place] at that time as she does live in [facility]. She is up in town visiting her boyfriend. She has no other complaints. The workup in the emergency department showed a white count of 14,000, hemoglobin 7.5 with hematocrit of 20, a normal platelet count. Reticulocyte count of 21%. D-dimer w as elevated. CT angiogram was done that was negative for PE and we were called for admission for junior n crisis. HOSPITAL COURSE: The patient was seen and examined by Dr. Wise. She was placed on aspirin fu ll dose, Lovenox for DVT prophylaxis. Normal saline 100 mL per hour, oxygen per nasal cannula and Ca rdiology consulted for indeterminate troponin. Echo was requested and the patient was placed in inpa tient status. Overnight 05/28/2017 to 05/29/2017, the patient was taken over by Dr. Jansen. Cardiol ogy consultation was performed. Dr. Mejia had no further workup recommendations. Patient was given h ydration and narcotics. CBC was followed and LDH was checked. On 05/29/2017, the patient was seen b philippe Ms. Brittani Dubon. She was given 1 unit of packed red blood cells and incentive spirometry. She no jacinto the patient was able to take hydroxyurea due to previous allergy and they were available as neede d. The patient remained relatively stable and was taken over from our service by Dr. [place] and was s et up for a Dilaudid AUTOMATIC EQUIPMENT TECHNICIAN. By 05/30/2017, she is still complaining of lower extremity edema and persistent chest pain. No other changes were made. The course was kept steady. On 06/01/2017, she was getting oversedated by her narcotics. She refused to wear oxygen, was hypoxic , so a Code Green was called. An ENT consult was considered due to epistaxis from the oxygen that wiley carbone had been wearing drying out her nose and causing a nosebleed. Lower extremity ultrasound for edema was done and was negative for DVT. The patient remained stable on AUTOMATIC EQUIPMENT TECHNICIAN on 06/02/2017 to 06/06/2017 when I took over. The day I saw her, she was oversedated with narcotics and unable to stay awake. On 06/07/2017, her AUTOMATIC EQUIPMENT TECHNICIAN was discontinued. She was placed on oral longer-acting narcotics for pain con trol and was much more functional. By day 06/08/2017, she was able to get up and walk around again, more awake. Her pain was tolerable and she was stable for discharge. She had appointment with Dr. Alaniz on 06/09/2017. PHYSICAL EXAMINATION: The patient was seen and examined on the day of discharge. Discharge plan and disposition was discussed with the patient face to face at the bedside. DISCHARGE MEDICATIONS: 1. Aspirin 81 mg daily. 2. Metoprolol 12.5 mg p.o. b.i.d., both these new medications. 3. Hydrocodone 10/325, #30 tablets 1 p.o. q.4 h. p.r.n. pain, no refills. 4. Folic acid 1 mg daily. FOLLOWUP APPOINTMENTS: 1. Primary care physician within a week. 2. Dr. Alaniz tomorrow, 06/09/2017. DISCHARGE CONDITION: Stable. DISPOSITION: Being discharged home via private vehicle. DISCHARGE ACTIVITY: Per cardiopulmonary limits. DISCHARGE DIET: Heart healthy recommended.
[2017-06-08] MEDS: Sodium Chloride 0.9% 1,000 ML IV SCH (16:26)
--- NOTE | 2017-06-10 12:36 | EKG ---
Test Reason : CHEST PAIN Blood Pressure : / mmHG Vent. Rate : 070 BPM Atrial Rate : 070 BPM P-R Int : 176 ms QRS Dur : 088 ms QT Int : 448 ms P-R-T Axes : 051 -05 -75 degrees QTc Int : 483 ms Normal sinus rhythm Possible Left atrial enlargement T wave abnormality, consider inferior ischemia T wave abnormality, consider anterolateral ischemia Prolonged QT Abnormal ECG Confirmed by STEVEN WEST, MILAN ([id number]), editor continuity and script DONNA CASTELLANOS ([id number]) on 06/10/2017 12:35:57 PM Referred By: Confirmed By:MILAN HARRIS MD
--- NOTE | 2017-07-27 08:51 | PQF ---
SIRIA ALMANZA VINAYA KUMAR MD [id number] [facility] [id number] CLINICAL DOCUMENTATION CLARIFICATION FORM: POST DISCHARGE Addendum to original discharge summary date: ____ Late entry note date: __ DATE: 07/27/2017 ATTN: SUNDAR Please exercise your independent, professional judgment in responding to the clarification form. Clinical indicators are provided on the bottom of this form for your review Please check appropriate box(s) to clarify if the following diagnosis has been ruled in or ruled out: PNEUMONIA_- 05/29 CONSULT _(CDI/Coding list diagnosis here) [ ] Ruled in diagnosis [ ] Continue to treat [ ] Resolved [ x ] Ruled out diagnosis [ ] Cannot rule out diagnosis [ ] Other diagnosis [ ] Unable to determine In addition, please specify: Present on Admission (POA): [ ] Yes [ ] No [ ] Unable to determine For continuity of documentation, please document condition throughout progress notes and discharge summary. Thank You. CLINICAL INDICATORS - SIGNS / SYMPTOMS / LABS: CT - PATCHY AREAS OF PERIPHERAL AIRSPACE IN THE RIGHT MIDDLE LOBE AND LEFT UPPER LOBE WHICH COULD BE RELATED TO SUBSEGMENTAL VOLUME LOSS, PNEUMONIA 05/29 CONSULT -PNEUMINIA DS- ACUTE SICKLE CELL CRISIS CHEST SYNDROME RISK FACTORS: SICKLE CELL CRISIS TREATMENTS: IV FLUIDS ANTIBIOTICS (This form is maintained as a part of the permanent medical record) 2014 [employer]. All Rights Reserved Prema Ibarra, KAYLEY, [email or web address] [email or web address] [phone] [place]
== END 2017-06-08 18:15 | disposition home or self-care (01) | DRG 812 ==
LOC: ERS 03:58 → 2NO 04:46 → T4-B 05-30 14:29
PROVIDERS: ADMIT Internal Medicine; ATTEND Internal Medicine
PROC: 30233N1 Transfusion of Nonautologous Red Blood Cells into Peripheral Vein, Percutaneous Approach (ICD-10-PCS; principal; 2017-05-30)
PROC: 2Y41X5Z Packing of Nasal Region using Packing Material (ICD-10-PCS; 2017-06-01)
DX: D57.01 Hb-SS disease with acute chest syndrome (principal); I24.8 Other forms of acute ischemic heart disease; I69.354 Hemiplegia and hemiparesis following cerebral infarction affecting left non-dominant side; J98.11 Atelectasis; R04.0 Epistaxis; T40.2X5A Adverse effect of other opioids, initial encounter; Y92.230 Patient room in hospital as the place of occurrence of the external cause; M25.472 Effusion, left ankle; E86.0 Dehydration; R09.02 Hypoxemia
CPT/HCPCS: 36415; 36430; 71045; 71275; 80048; 80053; 80061; 80306; 80307; 81003; 81015; 82550; 82553; 83605; 83615; 83735; 84484; 84703; 85014; 85018; 85025; 85046; 85379; 86850; 86900; 86901; 86922; 87040; 87804; 93005; 93010; 93306; 93970; 94640; 94760; 94799; 96361; 96365; 96366; 96368; A4216; J0696; J1170; J1200; J1650; J1956; J2405; J2550; J3475; J3480; J7050; J7620; P9016